=== PATIENT | female | born 1945 | race Caucasian/White ===

== ENCOUNTER 2017-11-23 01:14 | Outpatient (CLI) | payer MEDICARE, OTHER, SELFPAY ==
[2017-11-23 08:37] LABS: ALT 34 U/L (12-78); AST 25 U/L (15-37); Albumin 3.7 g/dL (3.4-5.0); Alkaline Phosphatase 81 U/L (46-116); Anion Gap 6.9 mmol/L (3-11); BUN 12 mg/dL (7-18); Bilirubin, Total 0.5 mg/dL (0.2-1.0); CO2 30.1 mmol/L (21.0-32.0); CREATININE 0.72 mg/dL (0.55-1.02); Chloride 105 mmol/L (98-107); Cholesterol 152 mg/dL (50-200); Glucose 85 mg/dL (70-100); HDL Cholesterol 52 mg/dL (40-60); LDL CHOLESTEROL 83 mg/dL (<100); Potassium 4.3 mmol/L (3.5-5.1); Sodium 142 mmol/L (136-145); Total Protein 6.6 g/dL (6.4-8.2); Triglyceride 134 mg/dL (30-150)
== END 2017-11-23 01:34 ==
DX: E03.9 Hypothyroidism, unspecified (principal); E78.5 Hyperlipidemia, unspecified; I10 Essential (primary) hypertension; I25.10 Atherosclerotic heart disease of native coronary artery without angina pectoris
CPT/HCPCS: 36415; 80053; 80061; 83721

== ENCOUNTER 2018-08-30 07:15 | Emergency (ER) | payer MEDICARE, OTHER, SELFPAY ==
[2018-08-30 07:17] VITALS: BP 128/44; PULSE 69; RESP 20; TEMP 36.6; O2SAT 92
--- NOTE | 2018-08-30 07:27 | DI.RAD_ITS ---
SYMPTOM/DIAGNOSIS: COUGH PA AND LATERAL CHEST: Comparison is made with 09/09/17. The heart size is normal. 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 The lungs are hyperinflated consistent with emphysematous changes. There are patchy densities seen at the left lower lobe which may represent pneumonia. This area appeared clear on the previous exam. IMPRESSION: Findings suspicious for left lower lobe pneumonia.
--- NOTE | 2018-08-30 07:31 | ED.GENADUL_ITS ---
Discharge Plan Disposition Patient Disposition: HOME Condition: Stable Discharge Details Chief Complaint: RespSymp Clinical Impression: Productive cough, Wheezing Primary Care Provider: Kathleen Alatorre ED Provider: Maxime Mario Home Meds and New Rx's Prescriptions: New prednisone 20 mg tablet 60 mg PO DAILY 4 Days Qty: 12 RF: 0 levofloxacin 750 mg tablet 750 mg PO DAILY Qty: 6 RF: 0 Continued acetaminophen [Tylenol Extra Strength] 500 MG tablet 1 tab PO BID PRN RF: 0 aspirin [Ecotrin] 325 MG tablet,delayed release (DR/EC) 1 tab PO DAILY RF: 0 CENTRUM SILVER TABLET 1 EACH tablet 1 tab PO DAILY RF: 0 vitamin E succinate 400 UNIT tablet 1 tab PO DAILY RF: 0 simvastatin [Zocor] 40 MG tablet 40 mg PO DAILY Qty: 90 RF: 4 lisinopril 40 MG tablet 40 mg PO DAILY Qty: 90 RF: 4 levothyroxine [Synthroid] 112 MCG tablet 112 mcg PO DAILY Qty: 90 RF: 4 Metoprolol Succinate [Toprol Xl] 100 MG TAB.ER.24H 100 mg PO DAILY Qty: 90 RF: 4 amlodipine 10 mg tablet 10 mg PO DAILY Qty: 90 RF: 3 triamcinolone acetonide [Nasacort] 10.8 ML aerosol,spray 2 spray NS BID RF: 0 Discharge Instructions Additional Instructions: You are being treated for a lung infection with antibiotics You should follow up with your primary care provider within a week. You should discuss having testing for COPD You should take your next dose of the levofloxacin and prednisone tomorrow Use the inhaler 2 puffs every 2 hours as needed for shortness of breath If you feel you are becoming more ill, have worsening shortness of breath return to the emergency department Medical Decision Making 73 yo female with hx of htn, hld, chronic smoker without dianosis of copd per pt, who comes in with 2 weeks of worsening productive cough. Denies recent travel, chest pain/pressure or fevers. She is speaking in full sentences on exam with intermittent cough. She has wheezing at the bases bilaterally otherwise no respiratory distress and speaking in full sentences. I suspect she has a component of copd given her lung exam findings and chronic smoking hx, will tx with neb and steroids and also obtain chest xray. She has no fever and appears systemically well so doubt sepsis or pna and will hold on lab work at this time. No chest pain or pressure and primary complaint is cough so doubt entities such as pe or acs and symptoms seem more infectious pt remains stable and does feel better after a neb. Xray negative on my read and vrad read. will tx as possibl copd exacerbation given emphysemetaous changes on xray and hx of smoking, advised f/u with pcp and return precautions given Differential Diagnosis copd, bronchitis, uri, pna Medical Records Medical records reviewed: Yes I reviewed the patient's medical records. Imaging Data Radiologic Study: Attestation: I personally reviewed and interpreted this imaging study as follows: Imaging: X-Ray Radiologist's impression: IMPRESSION: Emphysematous changes. No evidence of pneumonia, pulmonary vascular congestion, or pulmonary edema. HPI General Mode of arrival: ambulatory . Date/Time Provider Initiated Documentation: 08/30/18 07:16 . Limitations to Documentation: no limitations . Information obtained by: patient . History of Present Illness 73 year old F presents to the emergency department with the chief complaint of cough, described as moderate, Patient started experiencing this week(s) (2) and it has been constant. No relieving factors improve symptom(s), No exacerbating factors reported . Patient notes denies fever/chills. Patient did receive the following treatments prior to arrival, none Related Data Home Medications Medication Instructions Recorded Confirmed Centrum Silver Tablet 1 tab PO DAILY 07/05/12 08/30/18 acetaminophen [Tylenol Extra 1 tab PO BID PRN 07/05/12 08/30/18 Strength] aspirin [Ecotrin] 1 tab PO DAILY tab 07/05/12 08/30/18 vitamin E succinate 1 tab PO DAILY 07/05/12 08/30/18 levothyroxine [Synthroid] 112 mcg PO DAILY #90 tab-cap 08/18/17 08/30/18 lisinopril 40 mg PO DAILY #90 tab-cap 08/18/17 08/30/18 simvastatin [Zocor] 40 mg PO DAILY #90 tab-cap 08/18/17 08/30/18 triamcinolone acetonide [Nasacort] 2 spray NS BID 09/10/17 08/30/18 amlodipine 10 mg PO DAILY #90 tab-cap 04/30/18 08/30/18 levofloxacin 750 mg PO DAILY #6 tab 08/30/18 prednisone 60 mg PO DAILY 4 Days #12 tab 08/30/18 Previous Rx's Medication Instructions Recorded levothyroxine [Synthroid] 112 mcg PO DAILY #90 tab-cap 08/18/17 lisinopril 40 mg PO DAILY #90 tab-cap 08/18/17 simvastatin [Zocor] 40 mg PO DAILY #90 tab-cap 08/18/17 amlodipine 10 mg PO DAILY #90 tab-cap 04/30/18 levofloxacin 750 mg PO DAILY #6 tab 08/30/18 prednisone 60 mg PO DAILY 4 Days #12 tab 08/30/18 Allergies Allergy/AdvReac Type Severity Reaction Status Date / Time Penicillins Allergy Mild SWELLING Unverified 08/30/18 07:26 tetanus and diphtheria Allergy Mild LOCAL Unverified 08/30/18 07:26 toxoids REACTION; [Tetanus\T\Diphtheria Toxoid] REDNESS atorvastatin Allergy Unknown SKIN RASH Unverified 08/30/18 07:26 gemfibrozil Allergy Unknown SKIN RASH Unverified 08/30/18 07:26 naproxen AdvReac Intermediate GI UPSET Unverified 08/30/18 07:26 hydrochlorothiazide AdvReac Mild HYPONATREMI Unverified 08/30/18 07:26 A niacin AdvReac Unknown Unverified 08/30/18 07:26 General Stated Complaint: RespSymp CARLOS: 3 Review of Systems Review of Systems All systems reviewed & are unremarkable except as noted in HPI and below Constitutional Denies chills and Denies fever(s) Cardiovascular Denies chest pain Gastrointestinal Denies abdominal pain, Denies nausea and Denies vomiting PFSH Social History Smoking/Tobacco Use Status: Current every day Tobacco Type: cigarettes Alcohol Intake: never Drug use: Never Substance use type: does not use Household members: caregiver Number of Children: 3 What type of physical activity do you participate in: none Seatbelt use: always Do you feel safe at home: Yes Do you feel safe in your relationship?: Yes Exam Const General: no acute distress Orientation: alert HENMT Head: normal to inspection Ears: external ears normal General nose exam: external nose normal Mouth: moist mucous membranes Eyes General: appearance normal, both eyes and all related structures Neck Neck: normal visual inspection Resp Effort & Inspection: normal respiratory effort and able to speak in complete sentences Cardio Rate: regular rate Skin General skin exam: no rashes or lesions noted Neuro General: alert and oriented x3 Extrem General: normal to inspection Psych Mental Status: mental status grossly normal Course Vital Signs Temperature 36.6 C 08/30/18 07:17 Pulse 69 08/30/18 07:17 Respiratory Rate 20 08/30/18 07:17 Blood Pressure 128/44 L 08/30/18 07:17 Pulse Oximetry 92 L 08/30/18 07:17 Temperature 36.6 C 08/30/18 07:17 Temperature Source Temporal Artery Scan 08/30/18 07:17 Pulse 69 08/30/18 07:17 Respiratory Rate 20 08/30/18 07:17 Respiratory Effort Incrsd Work of Breathing 08/30/18 07:25 Respiratory Depth Normal 08/30/18 07:25 Blood Pressure 128/44 L 08/30/18 07:17 Blood Pressure Position Sitting 08/30/18 07:17 Pulse Oximetry 92 L 08/30/18 07:17 Oxygen Delivery Method Room Air 08/30/18 07:17 Oxygen Flow Rate 0 08/30/18 07:17 Pain Level 0 08/30/18 07:17
[2018-08-30 07:34] VITALS: PULSE 69; RESP 1; RESP 20; RESP 8; O2SAT 92
[2018-08-30] MEDS: Albuterol/Ipratropium 3 ML UPD VIAL (07:34)
[2018-08-30] MEDS: predniSONE 20 MG TAB 60 MG PO (07:35)
--- NOTE | 2018-08-30 07:57 | DI.VRAD_ITS ---
EXAM: XR Chest, 2 Views EXAM DATE/TIME: 08/30/2018 7:47 AM CLINICAL HISTORY: 73 years old, female; Cough x 3 weeks. TECHNIQUE: Imaging protocol: XR of the chest, 2 views. COMPARISON: CR CHEST 2 VIEWS PA,LAT 09/09/2017 2:49 PM FINDINGS: Lungs: Emphysematous changes. No evidence of pneumonia, pulmonary vascular congestion, or pulmonary edema. Pleural space: No pneumothorax. No sizable pleural effusion. Heart/Mediastinum: Aortic valve replacement. No cardiomegaly. Upper abdomen: Cholecystectomy clips. Bones/joints: Sternotomy. IMPRESSION: Emphysematous changes. No evidence of pneumonia, pulmonary vascular congestion, or pulmonary edema. Dictated and Authenticated by: Jesse Paez MD. Ordering:JEFE Swartz MD
[2018-08-30] MEDS: levoFLOXacin 500 MG, levoFLOXacin 250 MG 750 MG PO (07:58)
[2018-08-30 08:22] VITALS: BP 123/65; PULSE 72; RESP 18; TEMP 36.7; O2SAT 93
--- NOTE | 2018-08-30 08:24 | NUR.NOTE ---
Nursing Note: Albuterol inhale provided with demonstration and teach back.
== END 2018-08-30 08:25 | disposition home or self-care (01) ==
PROVIDERS: Emergency Provider Emergency Medicine
DX: R05 Cough (principal); R06.2 Wheezing; F17.210 Nicotine dependence, cigarettes, uncomplicated; I10 Essential (primary) hypertension
CPT/HCPCS: 94640; 99283; 71046; J7512; J7620

== ENCOUNTER 2018-11-02 02:07 | Outpatient (CLI) | payer MEDICARE, OTHER, SELFPAY ==
[2018-11-02 08:47] LABS: ALT 30 U/L (12-78); AST 22 U/L (15-37); Albumin 3.8 g/dL (3.4-5.0); Alkaline Phosphatase 86 U/L (46-116); BUN 12 mg/dL (7-18); Bilirubin, Total 0.6 mg/dL (0.2-1.0); Calcium 9.1 mg/dL (8.5-10.1); Calculated LDL 93 mg/dL; Chloride 103 mmol/L (98-107); Cholesterol 175 mg/dL (50-200); Glucose 88 mg/dL (70-100); HDL Cholesterol 48 mg/dL (40-60); Potassium 4.1 mmol/L (3.5-5.1); Sodium 140 mmol/L (136-145); TSH (W/Ref FT4) 0.79 uIU/mL (0.36-3.74); Total Protein 6.8 g/dL (6.4-8.2); Triglyceride 173 mg/dL (30-150)
== END 2018-11-02 02:27 ==
DX: E03.9 Hypothyroidism, unspecified (principal); I10 Essential (primary) hypertension; E78.5 Hyperlipidemia, unspecified; G47.00 Insomnia, unspecified
CPT/HCPCS: 36415; 80053; 80061; 83721; 84443

== ENCOUNTER 2018-12-08 14:29 | Outpatient (REF) | payer MEDICARE, OTHER, SELFPAY ==
[2018-12-09 11:52] LABS: HSV 1 DNA Result Negative; HSV 2 DNA Result POSITIVE
== END 2018-12-08 14:49 ==
LOC: LBN 14:29
PROVIDERS: Visit Provider Obstetrics & Gynecology Gynecology
DX: N90.89 Other specified noninflammatory disorders of vulva and perineum (principal)
CPT/HCPCS: 87529

== ENCOUNTER 2019-04-16 03:08 | Emergency (ER) | payer MEDICARE, OTHER, SELFPAY ==
[2019-04-16 03:11] VITALS: BP 197/65; PULSE 76; RESP 16; TEMP 36.3; O2SAT 98
--- NOTE | 2019-04-16 03:33 | ED.GENADUL_ITS ---
Discharge Plan Disposition Patient Disposition: HOME Condition: Good Discharge Details Chief Complaint: EyeProblem Clinical Impression: Abrasion, corneal Primary Care Provider: Kathleen Alatorre ED Provider: Chris Culver Home Meds and New Rx's Prescriptions: Continued nicotine 21-14-7 mg/24 hr patch, TD daily, sequential 1 patch TD Q24H Qty: 56 RF: 0 albuterol sulfate 90 mcg/actuation HFA aerosol inhaler 2 puff IH Q6H PRNRF: 0 valacyclovir [Valtrex] 1 gram tablet 1,000 mg PO BID Qty: 20 RF: 1 acetaminophen [Tylenol Extra Strength] 500 MG tablet 1 tab PO BID PRN RF: 0 aspirin [Ecotrin] 325 MG tablet,delayed release (DR/EC) 1 tab PO DAILY RF: 0 CENTRUM SILVER TABLET 1 EACH tablet 1 tab PO DAILY RF: 0 vitamin E succinate 400 UNIT tablet 1 tab PO DAILY RF: 0 levothyroxine [Synthroid] 112 mcg tablet 112 mcg PO DAILY Qty: 90 RF: 4 simvastatin [Zocor] 40 mg tablet 40 mg PO DAILY Qty: 90 RF: 4 lisinopril 40 mg tablet 40 mg PO DAILY Qty: 90 RF: 4 amlodipine 10 mg tablet 10 mg PO DAILY Qty: 90 RF: 3 metoprolol succinate 100 mg tablet extended release 24 hr 100 mg PO DAILY Qty: 90 RF: 3 triamcinolone acetonide [Nasacort] 10.8 ML aerosol,spray 2 spray NS BID RF: 0 Discharge Instructions Instructions: Corneal Abrasion (ED) Additional Instructions: You have a small corneal abrasion on your eye. Please apply a small thin ribbon of the erythromycin ointment to your right eye every 8 hours. Please follow-up closely with your energy manager or tool maintenance technician. If you notice any worsening of your symptoms, or any new symptoms such as vision changes, vomiting, diarrhea, fever, chills, shortness of breath, chest pain, numbness, weakness, or fainting , please return immediately to the emergency department for reevaluation. Please follow up with your primary care provider as soon as possible for reassessment and reevaluation. As always, it was a pleasure partici pating in your medical care today. Referrals: Kathleen Alatorre NP [Primary Care Provider] - Medical Decision Making This is a 74-year-old female who presents today for evaluation of right eye pain. She had cataract surgery in the right eye 2 years ago. Her pain tonight started sharply at 1 AM, she is a poor and difficult historian but describes it as a spiderweb pushed into her eye. Concerning red flags do not appear to be present at this time. No change in her vision or the pain with light or dark rooms. No dark curtain over her vision or lightening. No severe pressure-like sensation. No recent trauma. Physical exam demonstrates an in place disc, normal retinal exam, no cell and flare. Normal eye pressures. Visual acuity is unchanged. Fluorescein stain reveals evidence of an abrasion in the 6 o'clock position just below the pupil. Eversion of both lids demonstrates no foreign bodies that I can appreciate. Pain is completely relieved with tetracaine. Signs and symptoms clinically consistent with corneal abrasion, most likely occurring during sleep from her nail or other object. Will give erythromycin ointment for topical application, recommend close follow- up with her energy manager/tool maintenance technician. I have extensively reviewed the treatment plan and discharge instructions with the patient and their family. I have addressed all patient concerns at this time. The patient and family was made aware of what symptoms to monitor for that would warrant a return to the emergency department. Discussed the plan with the patient and family, they demonstrate verbal understanding and agreement with our assessment and plan at this time. HPI General Date/Time Provider Initiated Documentation: 04/16/19 03:13 . HPI Narrative: This is a 74-year-old female who presents today for evaluation of right eye pain. 2018 was 2 years ago in 2018 the patient had cataract surgery in her right eye. She has had no complications since then. No history of glaucoma. Patient states that tonight at 1 AM she had a sudden pain in her right eye which she describes as someone wadded up someone wadded up a cobweb and stuck it in my eye. She is unable to further describe the sensation in any other way. She denies any ice pick like sensation. She denies any recent welding, or activity that would have caused a foreign body in her eye. Light and dark rooms did not worsen her symptoms. She denies any dark curtain or lightening flashes. She denies any nausea or vomiting. No other complaints at this time. Related Data Home Medications Medication Instructions Recorded Confirmed Centrum Silver Tablet 1 tab PO DAILY 07/05/12 03/29/19 acetaminophen [Tylenol Extra 1 tab PO BID PRN 07/05/12 03/29/19 Strength] aspirin [Ecotrin] 1 tab PO DAILY tab 07/05/12 03/29/19 vitamin E succinate 1 tab PO DAILY 07/05/12 03/29/19 triamcinolone acetonide [Nasacort] 2 spray NS BID 09/10/17 03/29/19 albuterol sulfate 90 mcg/actuation 2 puff IH Q6H PRN 09/06/18 03/29/19 aerosol inhaler amlodipine 10 mg tablet 10 mg PO DAILY #90 tab-cap 11/18/18 03/29/19 levothyroxine 112 mcg tablet 112 mcg PO DAILY #90 tab-cap 11/18/18 03/29/19 lisinopril 40 mg tablet 40 mg PO DAILY #90 tab-cap 11/18/18 03/29/19 simvastatin 40 mg tablet 40 mg PO DAILY #90 tab-cap 11/18/18 03/29/19 metoprolol succinate 100 mg 100 mg PO DAILY #90 tab 11/19/18 03/29/19 tablet,extended release 24 hr nicotine 1 patch TD Q24H #56 patch 11/29/18 03/29/19 21mg/24hr-14mg/24hr-7mg/24hr daily transderm patch,sequential valacyclovir 1 gram tablet 1,000 mg PO BID #20 tab 12/10/18 03/29/19 Previous Rx's Medication Instructions Recorded amlodipine 10 mg tablet 10 mg PO DAILY #90 tab-cap 11/18/18 levothyroxine 112 mcg tablet 112 mcg PO DAILY #90 tab-cap 11/18/18 lisinopril 40 mg tablet 40 mg PO DAILY #90 tab-cap 11/18/18 simvastatin 40 mg tablet 40 mg PO DAILY #90 tab-cap 11/18/18 metoprolol succinate 100 mg 100 mg PO DAILY #90 tab 11/19/18 tablet,extended release 24 hr nicotine 1 patch TD Q24H #56 patch 11/29/18 21mg/24hr-14mg/24hr-7mg/24hr daily transderm patch,sequential valacyclovir 1 gram tablet 1,000 mg PO BID #20 tab 12/10/18 Allergies Allergy/AdvReac Type Severity Reaction Status Date / Time Penicillins Allergy Mild SWELLING Verified 03/29/19 09:06 tetanus and diphtheria Allergy Mild LOCAL Verified 03/29/19 09:06 toxoids REACTION; [Tetanus\T\Diphtheria Toxoid] REDNESS atorvastatin Allergy Unknown SKIN RASH Verified 03/29/19 09:06 gemfibrozil Allergy Unknown SKIN RASH Verified 03/29/19 09:06 naproxen AdvReac Intermediate GI UPSET Verified 03/29/19 09:06 hydrochlorothiazide AdvReac Mild HYPONATREMI Verified 03/29/19 09:06 A niacin AdvReac Unknown Verified 03/29/19 09:06 General Stated Complaint: EyeProblem CARLOS: 4 Review of Systems All systems reviewed & are unremarkable except as noted in HPI and below PFSH Family History (Updated 11/30/18 @ 11:19 by [place]) Father , age 56 Heart disease Abdominal aortic aneurysm Maternal Grandfather Heart disease Paternal Grandfather No problems noted. Maternal Grandmother Diabetes Heart disease Paternal Grandmother Diabetes Stroke SIBLINGS HISTORY Essential hypertension Heart disease Abdominal aortic aneurysm Bladder cancer 2 UNCLES Heart disease Sister , age 21 Abdominal aortic aneurysm Sister Abdominal aortic aneurysm Sister No problems noted. Brother , age 56 Alcohol abuse Brother No problems noted. Brother No problems noted. Brother No problems noted. Brother No problems noted. Son No problems noted. Son Heart disease Daughter No problems noted. Social History (Updated 11/30/18 @ 11:16 by [place]) Smoking/Tobacco Use Status: Current every day Tobacco Type: cigarettes Quit status: not considering quitting Alcohol Intake: never Drug use: Never Substance use type: does not use Caregiver/Support person: No Number of Children: 3 Do you need help understanding health information?: Rarely Pets and animals: No Sexually active: No Do you think of yourself as: straight/heterosexual Current gender identity: female What is your relationship status?: How often do you talk on the phone with friends or family?: three or more times per week How often do you get together with friends or relatives?: three or more times per week How often do you attend episcopalian or evangelical services?: decline to answer Do you belong to any clubs or organized social groups?: no Panel score (0-1 are the most socially isolated patients): 1 What type of physical activity do you participate in: none Adrianne/Voodoo: none Special adrianne needs: No Seatbelt use: always Drive intox or ride w/intox fire truck driver: No Do you feel safe at home: Yes Do you feel safe in your relationship?: Yes Exam Narrative Exam Narrative: 1.Const: Well-nourished, Well-developed, appearing stated age 2.Eyes: PERRL, no conjunctival injection, and symmetrical lids. Left eye: EOMI, PERRL, Peripheral vision intact. No nystagmus. No clinical signs of septal/orbital cellulitis, no redness around the eye, no proptosis. No hyphema, no signs of trauma around the eye, no periorbital emphysema. No slugg ishness of the pupil. No ophthalmoplegia. No afferent pupillary defect. Fluorescein exam is positive for corneal abrasion in the 6 o'clock position just below the pupil, negative Bart sign. No evidence of cell and flare. Visual acuity is normal. No asymmetric visual changes. Collin-Pen demonstrates normal pressure in the right eye. 3.ENT: Atraumatic external nose and ears. Moist MM. Neck: Symmetric, trachea midline, No thyromegaly. 4.CVS: +S1/S2, No murmurs or gallops. Peripheral pulses 2+ and equal in all extremities. Brisk capillary refill in all extremities. 5.RESP: Unlabored respiratory effort. Clear to auscultation bilaterally. No wheezes rales or rhonchi 6.GI: Soft, Nontender/Nondistended, No hepatosplenomegaly. No guarding or rebound. 7.MSK: Normocephalic/Atraumatic, Extremities w/o deformity or ttp No cyanosis or clubbing, Normal movement of all extremities 8.Skin: Warm, Dry. No rashes or lesions. 9.Neuro: parquet floor layer II-XII grossly intact. Sensation grossly intact, no focal neurologic deficits. 10.Psych: (AAO) x3. Appropriate mood and affect Course Vital Signs Vital signs: Vital Signs Temperature 36.3 C L 04/16/19 03:11 Pulse 76 04/16/19 03:11 Respiratory Rate 16 04/16/19 03:11 Blood Pressure 197/65 H 04/16/19 03:11 Pulse Oximetry 98 04/16/19 03:11 Temperature 36.3 C L 04/16/19 03:11 Temperature Source Temporal Artery Scan 04/16/19 03:11 Pulse 76 04/16/19 03:11 Respiratory Rate 16 04/16/19 03:11 Respiratory Effort 04/16/19 03:15 Blood Pressure 197/65 H 04/16/19 03:11 Pulse Oximetry 98 04/16/19 03:11 Oxygen Delivery Method Room Air 04/16/19 03:11 Oxygen Flow Rate 0 04/16/19 03:11
[2019-04-16] MEDS: Fluorescein STRIPS 100/BOX 1 MG (03:35)
[2019-04-16] MEDS: Tetracaine 0.5% 4 ML BTL (03:36)
[2019-04-16 03:37] VITALS: BP 156/62
[2019-04-16] MEDS: Erythromycin Ophth Oint 3.5 GM TUBE OD (03:38)
== END 2019-04-16 03:45 | disposition home or self-care (01) ==
LOC: ER 03:42
PROVIDERS: Emergency Provider Student in an Organized Health Care Education/Training Program
DX: H53.8 Other visual disturbances (principal); S05.01XA Injury of conjunctiva and corneal abrasion without foreign body, right eye, initial encounter; X58.XXXA Exposure to other specified factors, initial encounter
CPT/HCPCS: 99283

== ENCOUNTER 2019-12-02 02:27 | Outpatient (CLI) | payer MEDICARE, OTHER, SELFPAY ==
[2019-12-02 09:15] LABS: ALT 34 U/L (14-59); AST 25 U/L (15-37); Alkaline Phosphatase 84 U/L (46-116); BUN 10 mg/dL (7-18); Bilirubin, Total 0.5 mg/dL (0.2-1.0); CREATININE 0.71 mg/dL (0.55-1.02); Calcium 9.4 mg/dL (8.5-10.1); Chloride 102 mmol/L (98-107); Glucose 96 mg/dL (74-106); Potassium 3.7 mmol/L (3.5-5.1); Sodium 138 mmol/L (136-145); TSH (W/Ref FT4) 0.39 uIU/mL (0.36-3.74); Total Protein 6.9 g/dL (6.4-8.2)
== END 2019-12-02 02:47 ==
DX: E03.9 Hypothyroidism, unspecified (principal); E78.5 Hyperlipidemia, unspecified; F17.200 Nicotine dependence, unspecified, uncomplicated; J44.9 Chronic obstructive pulmonary disease, unspecified
CPT/HCPCS: 36415; 80053; 84443

== ENCOUNTER 2019-12-09 04:01 | Outpatient (CLI) | payer MEDICARE, OTHER, SELFPAY ==
--- NOTE | 2019-12-09 06:45 | DI.US_ITS ---
EXAM: US LOWER EXTREMITY VENOUS RT CLINICAL HISTORY: ? DVT post fall, PAIN LT LEG,M79.605, SWELLING,R22.42 TECHNIQUE: Right lower extremity venous ultrasound performed using grayscale, color-flow, and spectr al Doppler analysis. COMPARISON: No exams were available for comparison FINDINGS: The right common femoral, femoral and popliteal veins demonstrate normal compressibility, augmentatio n, and color Doppler. The posterior tibial veins are patent. The saphenofemoral junction is unremark able. There is no evidence of a Palmer cyst. There is a 3.3 x 0.8 x 2.9 cm complex fluid collection in the soft tissues of the distal calf laterally. This corresponds to the area of swelling. This ma y reflect a hematoma. IMPRESSION: 1. No DVT. 2. 3.3 x 0.8 x 2.9 cm complex fluid collection in the soft tissues of the calf. This may reflect a h ematoma. Please correlate clinically. DATA REPOSITORY:
--- NOTE | 2019-12-09 09:19 | DI.RAD_ITS ---
EXAM: XR TIB/FIB RT CLINICAL HISTORY: leg pain, edema and contusion post fall - not imprOVING,? FX,CELLULITIS VS. TECHNIQUE: 2D digital imaging was performed. COMPARISON: No exams were available for comparison FINDINGS: BONES: No acute fracture is present. No bony destructive lesion is seen. Visualized portion of knee a nd ankle joints are unremarkable. Small plantar calcaneal spur. Enthesophyte at the Achilles insert ion site. SOFT TISSUE: Vascular calcifications. Surgical clips around the knee. IMPRESSION: No acute fracture or dislocation. DATA REPOSITORY: RADIATION DOSE DELIVERED:
== END 2019-12-09 04:21 ==
DX: M79.661 Pain in right lower leg (principal); R60.0 Localized edema
CPT/HCPCS: 73590; 93971

== ENCOUNTER 2020-11-26 04:12 | Outpatient (CLI) | payer MEDICARE, OTHER, SELFPAY ==
[2020-11-26 11:23] LABS: ALT 32 U/L (14-59); AST 26 U/L (15-37); Albumin 3.8 g/dL (3.4-5.0); Alkaline Phosphatase 98 U/L (46-116); Anion Gap 10.3 mmol/L (3-11); BUN 10 mg/dL (7-18); Bilirubin, Total 0.4 mg/dL (0.2-1.0); CO2 28.7 mmol/L (21.0-32.0); CREATININE 0.8 mg/dL (0.55-1.02); Calcium 9.4 mg/dL (8.5-10.1); Chloride 103 mmol/L (98-107); Glucose 89 mg/dL (74-106); Potassium 4.1 mmol/L (3.5-5.1); Sodium 142 mmol/L (136-145); TSH (W/Ref FT4) 0.33 uIU/mL (0.36-3.74); Total Protein 6.8 g/dL (6.4-8.2)
[2020-11-26 11:42] LABS: FREE T4 1.45 ng/dL (0.76-1.46)
== END 2020-11-26 04:13 | disposition home or self-care (01) ==
LOC: LBO 04:12
DX: E03.9 Hypothyroidism, unspecified; F17.200 Nicotine dependence, unspecified, uncomplicated; I10 Essential (primary) hypertension; I25.10 Atherosclerotic heart disease of native coronary artery without angina pectoris; J44.9 Chronic obstructive pulmonary disease, unspecified; K63.5 Polyp of colon; N81.10 Cystocele, unspecified
CPT/HCPCS: 36415; 80053; 84439; 84443

== ENCOUNTER 2021-12-10 03:07 | Outpatient (CLI) | payer MEDICARE, OTHER, SELFPAY ==
[2021-12-10 14:11] LABS: Hemoglobin A1C 5.5 % (<5.7)
[2021-12-10 15:02] LABS: ALT 36 U/L (14-59); AST 25 U/L (15-37); Albumin 3.7 g/dL (3.4-5.0); Alkaline Phosphatase 97 U/L (46-116); Anion Gap 8.8 mmol/L (3-11); BUN 13 mg/dL (7-18); Bilirubin, Total 0.4 mg/dL (0.2-1.0); CO2 28.2 mmol/L (21.0-32.0); CREATININE 0.7 mg/dL (0.55-1.02); Calcium 9.2 mg/dL (8.5-10.1); Calculated LDL 62 mg/dL (<100); Chloride 102 mmol/L (98-107); Cholesterol 150 mg/dL (<200); Estimated GFR 89.58 (mL/min/1.73m2); Glucose 94 mg/dL (74-106); HDL Cholesterol 53 mg/dL (40-60); Potassium 3.7 mmol/L (3.5-5.1); Sodium 139 mmol/L (136-145); TSH 0.24 uIU/mL (0.36-3.74); Total Protein 7.1 g/dL (6.4-8.2); Triglyceride 177 mg/dL (<150)
[2021-12-10 21:15] LABS: FREE T4 1.43 ng/dL (0.76-1.46)
== END 2021-12-10 03:08 | disposition home or self-care (01) ==
LOC: LBO 03:07
PROVIDERS: Visit Provider Nurse Practitioner Family
DX: E03.9 Hypothyroidism, unspecified (principal); R73.01 Impaired fasting glucose; I10 Essential (primary) hypertension; I25.10 Atherosclerotic heart disease of native coronary artery without angina pectoris; R45.89 Other symptoms and signs involving emotional state
CPT/HCPCS: 36415; 80053; 80061; 83036; 84439; 84443

== ENCOUNTER 2022-01-27 04:05 | Outpatient (CLI) | payer MEDICARE, OTHER, SELFPAY ==
[2022-01-27 12:32] LABS: ALT 30 U/L (14-59); AST 29 U/L (15-37); Alkaline Phosphatase 106 U/L (46-116); Anion Gap 7.9 mmol/L (3-11); BUN 12 mg/dL (7-18); Bilirubin, Total 0.5 mg/dL (0.2-1.0); CO2 30.1 mmol/L (21.0-32.0); CREATININE 0.7 mg/dL (0.55-1.02); Calcium 9.4 mg/dL (8.5-10.1); Chloride 102 mmol/L (98-107); Estimated GFR 89.02 (mL/min/1.73m2); Glucose 97 mg/dL (74-106); Potassium 3.4 mmol/L (3.5-5.1); Sodium 140 mmol/L (136-145); Total Protein 7.7 g/dL (6.4-8.2)
[2022-01-27 12:41] LABS: FREE T4 1.49 ng/dL (0.76-1.46); TSH 1.03 uIU/mL (0.36-3.74)
== END 2022-01-27 04:06 | disposition home or self-care (01) ==
LOC: LOS 04:06
PROVIDERS: PCP Nurse Practitioner Family; Visit Provider Nurse Practitioner Family
DX: E03.9 Hypothyroidism, unspecified (principal); I10 Essential (primary) hypertension
CPT/HCPCS: 36415; 80053; 84439; 84443

== ENCOUNTER 2022-03-25 03:18 | Outpatient (CLI) | payer MEDICARE, OTHER, SELFPAY ==
[2022-03-25 13:08] LABS: Anion Gap 7.1 mmol/L (3-11); BUN 19 mg/dL (7-18); CO2 28.9 mmol/L (21.0-32.0); CREATININE 0.9 mg/dL (0.55-1.02); Calcium 9.3 mg/dL (8.5-10.1); Chloride 100 mmol/L (98-107); Estimated GFR 65.84 (mL/min/1.73m2); Glucose 103 mg/dL (74-106); Potassium 3.6 mmol/L (3.5-5.1); Sodium 136 mmol/L (136-145); Uric Acid 4.3 mg/dL (2.6-6.0)
== END 2022-03-25 03:19 | disposition home or self-care (01) ==
LOC: LBO 03:18
PROVIDERS: PCP Nurse Practitioner Family; Visit Provider Nurse Practitioner Family
DX: I10 Essential (primary) hypertension (principal); Z51.81 Encounter for therapeutic drug level monitoring
CPT/HCPCS: 36415; 80048; 84550

== ENCOUNTER 2022-05-14 01:38 | Outpatient (CLI) | payer MEDICARE, SELFPAY ==
--- NOTE | 2022-05-14 06:45 | DI.CT_ITS ---
Exam(s) CT ABDOMEN PELVIS W EXAM: CT ABDOMEN PELVIS W CLINICAL HISTORY: Longstanding left lower quadrant pain,r10.9 TECHNIQUE: Imaging Protocol: Axial computed tomography images with coronal and sagittal reformatted images were created and reviewed CONTRAST MATERIAL: Intravenous: Omnipaque 350 Contrast volume:100 mL Oral: Yes COMPARISON: CT ABD PELVIS WITH CONTRAST from 10/22/2011 FINDINGS: ABDOMEN: Lung Bases: Coronary artery calcifications and/or stents. Sternal wires are in place. Liver: Normal density. There are tiny hypodensities scattered in the liver which are too small for fu rther characterization but likely reflect small cysts. No suspicious masses are seen. Portal, Superior Mesenteric, and Splenic Veins: Unremarkable. Gallbladder and Biliary Tract: Status post cholecystectomy. The common duct measures 1.1 cm. This i s unchanged compared to the prior examination. Pancreas: Normal density, no abnormal calcifications or inflammatory process. Spleen: Normal. Adrenals: No masses seen. Kidneys: Normal size, contour and axis. No radiodense stones or obstructive uropathy. There are bilat eral simple renal cysts. The largest on the right measures 2.1 cm. The largest on the left measures 3 .4 cm. No follow-up is recommended. Abdominal Aorta: There is a large infrarenal tortuous abdominal aortic aneurysm measuring 6.5 x 6.6 c m. The the aneurysm lies predominantly to the left of midline. This has shown significant increase in size compared to prior examinations. There is no evidence of dissection. The aneurysm begins below t he renal arteries and extends to the bifurcation. The iliac arteries are normal caliber. Atherosclero sis is seen throughout. Bowel: There is diverticulosis in the colon, but no evidence of acute diverticulitis. There is no issac dence of bowel obstruction or bowel wall thickening. Appendix is unremarkable. Peritoneal Cavity: No ascites, collection or mesenteric inflammatory response. No free air. Lymph Nodes: Within normal limits. Bones: Within normal limits for the patient's age. The bones are osteopenic. Soft Tissues: There is a 1.7 x 1.6 cm soft tissue nodule in the left anterior chest wall incompletely imaged on this examination. There is again seen a fluid attenuation lesion in the midline of the up per abdomen just beneath the left lobe of the liver. It is unchanged in appearance compared to 2012. PELVIS: Bladder: Symmetric distention, no gross wall thickening. Note is made of a cystocele protruding throu gh the vagina. Reproductive Organs: Status post hysterectomy. Lymph Nodes: Within normal limits. Bones: Within normal limits for the patient's age. IMPRESSION: 1. 6.5 x 6.6 cm tortuous abdominal aortic aneurysm. This is shown significant increase in size compar ed to the examination from 10/22/2011. No evidence of dissection. Dr. Tariq was notified of the aneu rysm at 10:50 a.m. on 05/14/2022. 2. Urinary cystocele which is seen protruding through the vagina. 3. 1.7 x 1.6 cm soft tissue nodule in the soft tissues of the left anterior chest wall. It is incompl etely imaged on this examination. Please correlate with physical exam. A CT scan of the chest may be considered for further evaluation. This may lie within the inferior breast and mammographic correlati on should be considered. Unexpected findings RADIATION DOSE DELIVERED: 524.85mGy.cm Total DLP DATA REPOSITORY: All CT scans at this facility are submitted to the National Radiology Data Registry (NRDR) Dose Index Registry (DIR) with the [employer] (ACR). RADIATION OPTIMIZATION: All CT scans at this facility use at least one of these dose optimization te chniques: automated exposure control; mA and/or kV adjustment per patient size (includes targeted exa ms where dose is matched to clinical indication); or iterative reconstruction.
[2022-05-14] MEDS: Barium Sulfate 2% W/V-Berry Smoothie 450 ML BTL PO ×2 (07:58)
[2022-05-14 08:34] LABS: CREATININE 0.8 mg/dL (0.55-1.02); Estimated GFR 75.84 (mL/min/1.73m2)
[2022-05-14] MEDS: Normal Saline - Diluent 50 ML VIAL IJ (10:01)
[2022-05-14] MEDS: Omnipaque 350 MG/ML 500 ML BTL-Imaging package 100 ML IJ (10:01)
[2022-05-14] MEDS: Normal Saline Flush 10 ML SYR IVP (10:02)
== END 2022-05-14 01:58 ==
PROVIDERS: PCP Nurse Practitioner Family; Visit Provider Obstetrics & Gynecology Gynecology
DX: R10.32 Left lower quadrant pain (principal); Z01.812 Encounter for preprocedural laboratory examination; K76.89 Other specified diseases of liver; Z90.49 Acquired absence of other specified parts of digestive tract; N28.1 Cyst of kidney, acquired; Z90.710 Acquired absence of both cervix and uterus; I71.40 Abdominal aortic aneurysm, without rupture, unspecified; N81.12 Cystocele, lateral
CPT/HCPCS: 74177; 82565

== ENCOUNTER 2022-06-26 02:03 | Outpatient (CLI) | payer MEDICARE, SELFPAY ==
[2022-06-26 15:45] LABS: Anion Gap 7.6 mmol/L (3-11); CO2 28.4 mmol/L (21.0-32.0); CREATININE 0.8 mg/dL (0.55-1.02); Calcium 9.3 mg/dL (8.5-10.1); Chloride 103 mmol/L (98-107); Estimated GFR 75.84 (mL/min/1.73m2); Glucose 79 mg/dL (74-106); Potassium 3.8 mmol/L (3.5-5.1); Sodium 139 mmol/L (136-145)
[2022-06-26 16:06] LABS: BUN 17 mg/dL (7-18)
== END 2022-06-26 02:04 | disposition home or self-care (01) ==
PROVIDERS: PCP Nurse Practitioner Family; Visit Provider Nurse Practitioner Family
DX: I10 Essential (primary) hypertension (principal)
CPT/HCPCS: 36415; 80048

== ENCOUNTER 2022-07-11 01:18 | Outpatient (CLI) | payer MEDICARE, SELFPAY ==
[2022-07-11 09:37] LABS: HCT 39.4 % (36.0-46.0); MCH 30.7 pg (27.0-33.0); MCV 93 fL (80-95); Platelet Count 226 10^3/uL (130-400); RBC 4.24 10^6/uL (3.93-5.22); RDW 15.5 % (11.7-14.6); RDW-SD 53.1 fL; WBC 7.41 10^3/uL (4.4-10.8)
[2022-07-11 10:12] LABS: ALT 39 U/L (14-59); AST 31 U/L (15-37); Albumin 3.7 g/dL (3.4-5.0); Alkaline Phosphatase 130 U/L (46-116); BUN 13 mg/dL (7-18); Bilirubin, Total 0.5 mg/dL (0.2-1.0); CREATININE 0.9 mg/dL (0.55-1.02); Calcium 9.7 mg/dL (8.5-10.1); Chloride 103 mmol/L (98-107); Estimated GFR 65.84 (mL/min/1.73m2); Glucose 96 mg/dL (74-106); Potassium 3.5 mmol/L (3.5-5.1); Sodium 139 mmol/L (136-145); Total Protein 7.3 g/dL (6.4-8.2)
== END 2022-07-11 01:19 | disposition home or self-care (01) ==
PROVIDERS: PCP Nurse Practitioner Family; Visit Provider Nurse Practitioner Family
DX: Z68.1 Body mass index [BMI] 19.9 or less, adult (principal); R10.9 Unspecified abdominal pain; R35.0 Frequency of micturition
CPT/HCPCS: 36415; 80053; 85027; 87077; 87086; 87186

== ENCOUNTER 2023-01-19 10:20 | Inpatient (IN) | payer MEDICARE, SELFPAY ==
[2023-01-19] VITALS (44 sets, daily range): BP systolic 96–154; BP diastolic 25–66; PULSE 47–85; RESP 14–29; TEMP 36.4–37.7; O2SAT 91–99
--- NOTE | 2023-01-19 | DI.CT_ITS ---
Exam(s) CT ABDOMEN PELVIS CTA EXAM: CT ABDOMEN PELVIS CTA CLINICAL HISTORY: aaa, abd pain. TECHNIQUE: Imaging Protocol: Axial CT angiography was performed with multi-slice acquisition and m ulti-planar and/or 3D reconstructions. CONTRAST MATERIAL: Intravenous: Omnipaque 350 Contrast volume:99mL Oral: No COMPARISON: CT CT ABDOMEN PELVIS W from 05/14/2022 FINDINGS: ABDOMEN AND PELVIS: Abdomen: Celiac axis/mesenteric arteries: Atherosclerosis at the origins. There is extensive atherosclerosis of the superior mesenteric artery with approximately 50 percent stenosis. Renal Arteries: No evidence of occlusion or significant stenosis. There is atherosclerosis at the stan gins of both renal arteries. Aorta: There is a large tortuous abdominal aortic aneurysm measuring 6.9 x 7.0 cm maximally. There is atherosclerosis. No evidence of dissection. Pelvis: Iliac Arteries: No evidence of occlusion or significant stenosis. Common Femoral Arteries: No evidence of occlusion or significant stenosis. ABDOMEN: Lung bases: Unremarkable. Liver: Normal density. No measurable mass. Portal, Superior Mesenteric, and Splenic Veins: Unremarkable. Gallbladder and Biliary Tract: Status post cholecystectomy. There is unchanged dilatation of the com mon bile duct measuring 1 cm. Pancreas: Pancreatic atrophy. Spleen: Normal. Adrenals: No masses seen. Kidneys: Normal size, contour and axis. No radiodense stones or obstructive uropathy. Stable bilatera l renal cysts. No follow-up is recommended. Bowel: There is diverticulosis of the colon. Mild inflammatory changes are seen around the descendin g and proximal sigmoid colon suspicious for acute diverticulitis/colitis. There is no evidence of vern wel obstruction. No evidence of appendicitis. No findings to suggest pneumatosis. Peritoneal Cavity: No ascites, collection or mesenteric inflammatory response. No free air. Lymph Nodes: Within normal limits. Bones: Within normal limits for the patient's age. The bones are osteopenic. Soft Tissues: There is a stable fluid attenuation lesion in the midline of the upper abdomen just diane eath the left lobe of the liver. It is stable. PELVIS: Bladder: Symmetric distention, no gross wall thickening. Reproductive Organs: Unremarkable as visualized. Lymph Nodes: Within normal limits. Bones: Within normal limits. IMPRESSION: 1. Inflammation around the distal descending colon and proximal sigmoid colon which may represent col itis versus diverticulitis. No abscess or free air. 2. 6.9 x 7.0 cm infrarenal abdominal aortic aneurysm without evidence of dissection. 3. 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 4. Findings were discussed with Dr. Harris of the emergency department at 2:19 p.m. on 01/19/2023. RADIATION DOSE DELIVERED: Total DLP DATA REPOSITORY: All CT scans at this facility are submitted to the National Radiology Data Registry (NRDR) Dose Index Registry (DIR) with the [employer] (ACR). RADIATION OPTIMIZATION: All CT scans at this facility use at least one of these dose optimization te chniques: automated exposure control; mA and/or kV adjustment per patient size (includes targeted exa ms where dose is matched to clinical indication); or iterative reconstruction.
[2023-01-19 11:27] LABS: Abs Immature Grans 0.13 10^3/uL (0.0-0.06); Absolute Basophil Count 0.06 10^3/uL (0.0-0.2); Absolute Eosinophil Count 0.09 10^3/uL (0.0-0.7); Absolute Lymphocyte Count 1.86 10^3/uL (1.2-3.4); Absolute Monocyte Count 0.26 10^3/uL (0.1-0.8); Absolute Neutrophil Count 7.41 10^3/uL (1.2-6.7); Basophils % 0.6; Eosinophils % 0.9; HCT 39.8 % (36.0-46.0); HGB 13.4 g/dL (11.2-15.7); Immature Grans % 1.3; MCH 31.2 pg (27.0-33.0); MCHC 33.7 % (32.0-36.0); MCV 93 fL (80-95); MPV 10.7 fL (8.0-11.0); Monocytes % 2.7; Neutrophils % 75.5; Platelet Count 227 10^3/uL (130-400); RBC 4.29 10^6/uL (3.93-5.22); RDW 15.9 % (11.7-14.6); RDW-SD 54.4 fL; WBC 9.81 10^3/uL (4.4-10.8)
--- NOTE | 2023-01-19 11:27 | W.ED.GENAD ---
Discharge Plan Disposition Patient Disposition: Admit to [facility] Condition: Stable Discharge Details Chief Complaint: Arrhythmia Clinical Impression: Colitis Primary Care Provider: Danielito Henry ED Provider: Asif Harris Home Meds and New Rx's Prescriptions: No Action aspirin 325 mg tablet 325 mg PO DAILY Ensure Liquid 8 ml PO TID Qty: 5688 12RF simvastatin 20 mg tablet 20 mg PO DAILY Qty: 90 3RF spironolactone 25 mg tablet 25 mg PO DAILY Qty: 90 1RF acetaminophen [Tylenol Extra Strength] 500 MG tablet 1 tab PO BID PRN Patient Comments: took over a month ago CENTRUM SILVER TABLET 1 EACH tablet 1 tab PO DAILY vitamin E succinate 400 UNIT tablet 1 tab PO DAILY levothyroxine 100 mcg tablet 100 mcg PO DAILY Qty: 90 2RF amlodipine 10 mg tablet See Rx Instructions .ROUTE .COMPLEX Qty: 90 2RF Dose Instruction: TAKE ONE TABLET BY MOUTH EVERY DAY Rx Instructions: TAKE ONE TABLET BY MOUTH EVERY DAY metoprolol succinate 100 mg tablet extended release 24 hr See Rx Instructions .ROUTE .COMPLEX Qty: 90 2RF Dose Instruction: TAKE ONE TABLET BY MOUTH EVERY DAY Rx Instructions: TAKE ONE TABLET BY MOUTH EVERY DAY lisinopril 40 mg tablet See Rx Instructions .ROUTE .COMPLEX Qty: 90 2RF Dose Instruction: TAKE ONE TABLET BY MOUTH EVERY DAY Rx Instructions: TAKE ONE TABLET BY MOUTH EVERY DAY Medical Decision Making 1130?- 78-year-old female with history of multiple medical problems including AAA, here with abdominal pain and frequent loose stools since this morning. Concern for AAA with rupture versus gastroenteritis versus biliary disease or pancreatitis. Bedside ultrasound performed by me and reveals large AAA. Plan to obtain stat CTA of the abdomen and pelvis. I offered analgesic and patient declined at this time. -- CT of the abdomen pelvis was interpreted by radiology: AAA is present, not dissecting. Colitis versus diverticulitis. Plan to treat with Flagyl and Levaquin IV. I spoke with Dr. Rubio, discussed ED presentation and course, she will admit the patient. Lab Data Lab results reviewed: Yes I reviewed the patient's lab results. Labs: Laboratory Tests Range/Units 01/19/23 01/19/23 01/19/23 10:30 10:35 11:20 WBC (4.4-10.8) 10^3/uL 9.81 RBC (3.93-5.22) 10^6/uL 4.29 Hgb (11.2-15.7) g/dL 13.4 Hct (36.0-46.0) % 39.8 MCV (80-95) fL 93 MCH (27.0-33.0) pg 31.2 MCHC (32.0-36.0) % 33.7 RDW (11.7-14.6) % 15.9 H Plt Count (130-400) 10^3/uL 227 MPV (8.0-11.0) fL 10.7 Immature Gran % 1.3 Neutrophils % 75.5 Lymphocytes % 19.0 Monocytes % 2.7 Eosinophils % 0.9 Basophils % 0.6 Nucleated RBC % (0.0-0.3) % 0.0 Absolute Neutrophils (1.2-6.7) 10^3/uL 7.41 H Absolute Lymphocytes (1.2-3.4) 10^3/uL 1.86 Absolute Monocytes (0.1-0.8) 10^3/uL 0.26 Absolute Eosinophils (0.0-0.7) 10^3/uL 0.09 Absolute Basophils (0.0-0.2) 10^3/uL 0.06 VBG Lactate (0.6-1.4) mmol/L 2.3 H* Sodium (136-145) mmol/L 133 L Potassium (3.5-5.1) mmol/L 3.6 Chloride (98-107) mmol/L 97 L Carbon Dioxide (21.0-32.0) mmol/L 25.8 Anion Gap (3-11) mmol/L 10.2 BUN (7-18) mg/dL 22 H Creatinine (0.55-1.02) mg/dL 1.1 H Est GFR (CKD-EPI 2020) (mL/min/1.73m2) 51.43 Glucose (74-106) mg/dL 163 H Calcium (8.5-10.1) mg/dL 10.3 H Magnesium (1.8-2.4) mg/dL 2.5 H Total Bilirubin (0.2-1.0) mg/dL 0.7 AST (15-37) U/L 33 ALT (14-59) U/L 35 Alkaline Phosphatase (46-116) U/L 159 H Troponin I (<or=60) ng/L < 50 Total Protein (6.4-8.2) g/dL 7.7 Albumin (3.4-5.0) g/dL 4.1 Lipase (16-77) U/L 95 H COVID-19 Source SARS-CoV-2 (PCR) (Negative) Patient ABO/Rh O Positive Antibody Screen NEGATIVE Range/Units 01/19/23 14:30 WBC (4.4-10.8) 10^3/uL RBC (3.93-5.22) 10^6/uL Hgb (11.2-15.7) g/dL Hct (36.0-46.0) % MCV (80-95) fL MCH (27.0-33.0) pg MCHC (32.0-36.0) % RDW (11.7-14.6) % Plt Count (130-400) 10^3/uL MPV (8.0-11.0) fL Immature Gran % Neutrophils % Lymphocytes % Monocytes % Eosinophils % Basophils % Nucleated RBC % (0.0-0.3) % Absolute Neutrophils (1.2-6.7) 10^3/uL Absolute Lymphocytes (1.2-3.4) 10^3/uL Absolute Monocytes (0.1-0.8) 10^3/uL Absolute Eosinophils (0.0-0.7) 10^3/uL Absolute Basophils (0.0-0.2) 10^3/uL VBG Lactate (0.6-1.4) mmol/L Sodium (136-145) mmol/L Potassium (3.5-5.1) mmol/L Chloride (98-107) mmol/L Carbon Dioxide (21.0-32.0) mmol/L Anion Gap (3-11) mmol/L BUN (7-18) mg/dL Creatinine (0.55-1.02) mg/dL Est GFR (CKD-EPI 2020) (mL/min/1.73m2) Glucose (74-106) mg/dL Calcium (8.5-10.1) mg/dL Magnesium (1.8-2.4) mg/dL Total Bilirubin (0.2-1.0) mg/dL AST (15-37) U/L ALT (14-59) U/L Alkaline Phosphatase (46-116) U/L Troponin I (<or=60) ng/L Total Protein (6.4-8.2) g/dL Albumin (3.4-5.0) g/dL Lipase (16-77) U/L COVID-19 Source Nasal/Nares SARS-CoV-2 (PCR) (Negative) Negative Patient ABO/Rh Antibody Screen HPI General Mode of arrival: EMS. Date/Time Provider Initiated Documentation: 01/19/23 10:26. Limitations to Documentation: altered mental status. Information obtained by: patient. HPI Narrative: 78-year-old female with multiple medical problems including history of diverticulosis, abdominal aortic aneurysm, hypertension, hyperlipidemia, hypothyroidism, nonalcoholic fatty liver disease, presents with chief complaint of abdominal discomfort with associated frequent loose stool since this morning. History is limited secondary to poor historian and altered mental status. Related Data Home Medications Medication Instructions Recorded Confirmed Centrum Silver Tablet 1 tab PO DAILY 07/05/12 01/19/23 acetaminophen 500 mg tablet 1 tab PO BID PRN 07/05/12 01/19/23 (Tylenol Extra Strength) vitamin E succinate 268 mg (400 1 tab PO DAILY 07/05/12 01/19/23 unit) tablet aspirin 325 mg tablet 325 mg PO DAILY 12/05/21 01/19/23 food supplemt, lactose-reduced 8 ml PO TID #5,688 mL 06/06/22 01/19/23 (Ensure oral liquid) levothyroxine 100 mcg tablet 100 mcg PO DAILY #90 tab-caps 06/17/22 01/19/23 simvastatin 20 mg tablet 20 mg PO DAILY #90 tab-caps 10/07/22 01/19/23 spironolactone 25 mg tablet 25 mg PO DAILY #90 tabs 10/07/22 01/19/23 amlodipine 10 mg tablet See Rx Instructions .Route 10/17/22 01/19/23 .COMPLEX #90 tabs lisinopril 40 mg tablet See Rx Instructions .Route 10/17/22 01/19/23 .COMPLEX #90 tabs metoprolol succinate 100 mg See Rx Instructions .Route 10/17/22 01/19/23 tablet,extended release 24 hr .COMPLEX #90 tabs Previous Rx's Medication Instructions Recorded food supplemt, lactose-reduced 8 ml PO TID #5,688 mL 03/24/23 (Ensure oral liquid) levothyroxine 100 mcg tablet 100 mcg PO DAILY #90 tab-caps 06/17/22 simvastatin 20 mg tablet 20 mg PO DAILY #90 tab-caps 10/07/22 spironolactone 25 mg tablet 25 mg PO DAILY #90 tabs 10/07/22 amlodipine 10 mg tablet See Rx Instructions .Route 10/17/22 .COMPLEX #90 tabs lisinopril 40 mg tablet See Rx Instructions .Route 10/17/22 .COMPLEX #90 tabs metoprolol succinate 100 mg See Rx Instructions .Route 10/17/22 tablet,extended release 24 hr .COMPLEX #90 tabs Allergies Allergy/AdvReac Type Severity Reaction Status Date / Time Penicillins Allergy Mild SWELLING Verified 01/19/23 10:43 tetanus and diphtheria Allergy Mild LOCAL Verified 01/19/23 10:43 toxoids REACTION; [Tetanus\T\Diphtheria Toxoid] REDNESS atorvastatin Allergy Unknown SKIN RASH Verified 01/19/23 10:43 gemfibrozil Allergy Unknown SKIN RASH Verified 01/19/23 10:43 naproxen AdvReac Intermediate GI UPSET Verified 01/19/23 10:43 hydrochlorothiazide AdvReac Mild HYPONATREMI Verified 01/19/23 10:43 A niacin AdvReac Unknown Verified 01/19/23 10:43 General Stated Complaint: Nausea/Vomit/Diar CARLOS: 3 Review of Systems All systems reviewed & are unremarkable except as noted in HPI and below Constitutional Constitutional: Denies fever(s) Gastrointestinal Gastrointestinal: Reports abdominal pain (Diffuse) and Denies nausea PFSH All Active Problems (Updated 01/19/23 @ 15:24 by Asif Harris MD) Colitis (Acute) Left lower quadrant pain (Acute) Cyst of right breast (Acute) 05/2022 noted at time of abdominal CAT scan. Patient declines mammogram. 06/2022. 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 Taking daily ASA, Metopolol 100mg QD. Abdominal aortic aneurysm (Acute 10/22/12) q 6 mo US (PLAN 01/28 f/u to be CT with contrast at [facility] [place]) strong fam hx 4x4 cm by US at [facility] [place] 07/2805/14/2022. 6.5 x 6.[address] [facility] Colon polyp (Acute 10/16/13) 08/26/13 serrated adenoma (f/u 08/28, normal) Difficulty coping (Acute 03/24/16) Diverticulosis (Acute 11/03/14) Essential hypertension (Acute 03/02/13) Taking Amlodipine 10mg QD and Lisinipril 40mg QD. Hypertension well controlled . Today's BP is 128/60. Continue and monitor. Hyperlipidemia (Acute 10/22/12) Hypothyroidism (acquired) (Acute 10/22/12) Taking Levothyroxine 112mcg QD. Last TSH 2.55 on 12/01/16. Will check level within next 2 weeks. Pelvic organ prolapse quantification stage 4 cystocele (Chronic 03/25/16) Rx with Gelhorn pessary Smoker (Acute) Prurigo nodularis (Chronic) Non-alcoholic fatty liver disease (Chronic) Low back pain (Chronic 03/03/13) Emphysema with chronic bronchitis (Acute) Per CXR changes 08/30/18 Declines further pulmonary testing Advance directive discussed with patient (Acute) Genital herpes (Acute) 11/2018 left vulvar lesion. Rx with valacyclovir Abrasion, corneal (Acute) Right leg injury (Acute) Cellulitis and abscess of right leg (Acute) Feeling of sadness (Acute) Weight loss observed on examination (Acute) Peripheral artery disease (Acute) Therapeutic drug monitoring (Acute) Left sided abdominal pain of unknown cause (Acute) 05/2022. No improvement after Gellhorn pessary removed. CAT scan of the abdomen shows a change in the size of her abdominal aortic aneurysm. 06/2022. She denies any further back or abdominal pain. Body mass index (BMI) less than 16.5 (Acute) Medical History E-coli UTI 07/11/22. Zuñiga sensitive. Encounter for pessary maintenance 03/2022. Patient requested 70 mm Gellhorn removed. At follow-up visit patient reports improved pelvic pain and constipation. Gellhorn will be left out. Vaginal pessary present (03/02/17) 03/2016. Short stemmed #64 Gelhorn pessary. [id number]. Short stemmed 70mm Gelhorn pessary. On 2022. Pessary removed at patient's request. 03/2022. Pessary removed per pt request. 10/2019 76 mm short stem Gellhorn. 08/2020 70 mm short stem Gellhorn Stress due to illness of family member (11/24/16) Spouse . Dealing with grief. See below. Asthma Hypertension Hypothyroidism Hyperlipidemia Surgical History VEIN STRIPPING Ligation of fallopian tube Hysterectomy, Laproscopic partial; has cervix HERNIA REPAIR Cholecystectomy AORTOCORONARY BYPASS (~1998) Family History Father , age 56 Heart disease Abdominal aortic aneurysm Maternal Grandfather Heart disease Paternal Grandfather No problems noted. Maternal Grandmother Diabetes Heart disease Paternal Grandmother Diabetes Stroke [place] HISTORY Essential hypertension Heart disease Abdominal aortic aneurysm Bladder cancer 2 UNCLES Heart disease Sister , age 21 Abdominal aortic aneurysm Sister Abdominal aortic aneurysm Sister No problems noted. Brother , age 56 Alcohol abuse Brother No problems noted. Brother No problems noted. Brother No problems noted. Brother No problems noted. Son No problems noted. Son Heart disease Daughter No problems noted. Mother , 30's No problems noted. Social History Smoking/Tobacco Use Status: Current every day Tobacco Type: cigarettes Tobacco: How many years used: 60 Quit status: considering quitting Second Hand Exposure: Yes Smoking risk assessment performed?: Yes Alcohol Intake: never Drug use: Never Substance use type: does not use Counseling given: No Counseling provided: none Number of Children: 3 Do you need help understanding health information?: Rarely Pets and animals: No Sexually active: No Do you think of yourself as: straight/heterosexual Current gender identity: female What is your relationship status?: How often do you talk on the phone with friends or family?: three or more times per week How often do you get together with friends or relatives?: decline to answer How often do you attend catholic or latter-day services?: decline to answer Do you belong to any clubs or organized social groups?: no Panel score (0-1 are the most socially isolated patients): 1 Special nilam needs: No Seatbelt use: always Drive intox or ride w/intox electric truck driver: No Do you feel safe at home: Yes Do you feel safe in your relationship?: Yes Exam Const General: cooperative Nutritional Appearance: cachectic Orientation: alert, awake and confused [facility] Mouth: moist mucous membranes Eyes Conjunctivae: normal conjunctivae Sclera: normal sclerae Resp Auscultation: clear to auscultation bilaterally, no rales, no rhonchi and no wheezes Cardio Rate: regular rate and not tachycardic Rhythm: regular rhythm GI Palpation: soft, not firm, no guarding, pulsatile mass, not rigid and tender other (Diffuse); with no rebound tenderness Skin General skin exam: no rashes or lesions noted Neuro General: patient alert, patient awake and tone normal Cognition: abnormal cognition Speech: speech normal Extrem General: no edema Course Vital Signs Vital signs: Vital Signs Temperature 36.4 C L 01/19/23 10:22 Pulse 49 L 01/19/23 10:22 Respiratory Rate 15 01/19/23 10:22 Blood Pressure 103/37 L 01/19/23 10:22 Pulse Oximetry 97 01/19/23 10:22 Temperature 36.4 C L 01/19/23 10:22 Temperature Source Temporal Artery Scan 01/19/23 10:22 Pulse 52 L 01/19/23 11:16 Pulse 55 L 01/19/23 11:10 Respiratory Rate 26 H 01/19/23 11:10 Respiratory Effort Normal 01/19/23 10:44 Blood Pressure 102/27 L 01/19/23 11:16 Blood Pressure Mean 53 01/19/23 11:16 Blood Pressure Position Sitting 01/19/23 10:22 Pulse Oximetry 98 01/19/23 11:20 Oxygen Delivery Method Room Air 01/19/23 10:22 Oxygen Flow Rate 0 01/19/23 10:22 Pain Level 5 01/19/23 10:22
[2023-01-19 11:28] LABS: Lactate 2.3 mmol/L (0.6-1.4)
[2023-01-19 11:47] LABS: ALT 35 U/L (14-59); AST 33 U/L (15-37); Albumin 4.1 g/dL (3.4-5.0); Alkaline Phosphatase 159 U/L (46-116); Anion Gap 10.2 mmol/L (3-11); BUN 22 mg/dL (7-18); Bilirubin, Total 0.7 mg/dL (0.2-1.0); CO2 25.8 mmol/L (21.0-32.0); CREATININE 1.1 mg/dL (0.55-1.02); Calcium 10.3 mg/dL (8.5-10.1); Chloride 97 mmol/L (98-107); Estimated GFR 51.43 (mL/min/1.73m2); Glucose 163 mg/dL (74-106); Lipase 95 U/L (16-77); Magnesium 2.5 mg/dL (1.8-2.4); Potassium 3.6 mmol/L (3.5-5.1); Sodium 133 mmol/L (136-145); Total Protein 7.7 g/dL (6.4-8.2); Troponin I < 50 ng/L (<or=60)
--- NOTE | 2023-01-19 12:07 | NUR.NOTE ---
Nursing Note: Pt had multiple episodes of stool incontinence. This RN assisted pt with thorough cleanup. Pt in bed with 4 warm blankets and call light within reach. Pt has 3-5 visitors. This RN or other staff assisted with all requests for blankets or bed adjustments or updates.
[2023-01-19] MEDS: Normal Saline - Diluent 50 ML VIAL IJ (13:47)
[2023-01-19] MEDS: Omnipaque 350 MG/ML 500 ML BTL-Imaging package 100 ML IJ (13:48)
[2023-01-19 14:34] LABS: Source Nasal/Nares
[2023-01-19] MEDS: metroNIDAZOLE 500 MG/100 ML BAG 100 MG IVPB ×2 (14:46→21:36)
[2023-01-19 15:06] LABS: COVID-19 PCR Negative (Negative)
[2023-01-19] MEDS: levoFLOXacin 750 MG/150 ML BAG 100 MG IVPB (15:51)
[2023-01-19] MEDS: Lactated Ringers 1,000 ML 125 ML IV (15:52)
--- NOTE | 2023-01-19 16:16 | NUR.NOTE ---
Nursing Note: This RN dariela blood cultures prior to abx initiation. MD declined need for blood cultures. Blood cultures discarded when pt was admitted.
[2023-01-19 16:35] LABS: C Diff PCR Negative (Negative)
[2023-01-19 18:15] LABS: Lactate 1.9 mmol/L (0.6-1.4)
[2023-01-19] MEDS: Acetaminophen 500 MG TAB PO (20:02)
[2023-01-19] MEDS: Normal Saline Flush 10 ML SYR IVP (20:02)
[2023-01-19] MEDS: Simvastatin 20 MG TAB PO (20:02)
[2023-01-20 00:46] VITALS: BP 141/64; PULSE 68; RESP 18; TEMP 36.7; O2SAT 95
[2023-01-20] MEDS: Lactated Ringers 1,000 ML 125 ML IV ×2 (00:47→08:53)
[2023-01-20] MEDS: Acetaminophen 500 MG TAB PO ×2 (02:00→16:22)
[2023-01-20 02:23] LABS: Bilirubin Negative (Negative); Blood Small (Negative); Clarity Sl Cloudy (Clear); Glucose Negative (Negative); Ketones Negative (Negative); Leukocyte Esterase Trace (Negative); Nitrite Positive (Negative); Urobilinogen 0.2 mg/dL (Up to 0.2)
[2023-01-20 02:40] LABS: Bacteria Many HPF (Negative); C & S Indicated? Yes; Crystals Negative HPF (Negative); Epithelial Cells Few HPF (Negative); Mucus Negative (Negative); Other Cells Rare Transitional (Negative); WBC 20-50 HPF (0-5)
[2023-01-20] MEDS: metroNIDAZOLE 500 MG/100 ML BAG 100 MG IVPB ×4 (04:12→21:15)
[2023-01-20] MEDS: Levothyroxine 100 MCG TAB PO (05:15)
[2023-01-20 06:37] LABS: Abs Immature Grans 0.04 10^3/uL (0.0-0.06); Absolute Basophil Count 0.02 10^3/uL (0.0-0.2); Absolute Eosinophil Count 0.03 10^3/uL (0.0-0.7); Absolute Lymphocyte Count 1.18 10^3/uL (1.2-3.4); Absolute Monocyte Count 0.72 10^3/uL (0.1-0.8); Absolute Neutrophil Count 7.99 10^3/uL (1.2-6.7); Basophils % 0.2; Eosinophils % 0.3; HGB 10.7 g/dL (11.2-15.7); Immature Grans % 0.4; Lymphocytes % 11.8; MCH 31.2 pg (27.0-33.0); MCHC 34.5 % (32.0-36.0); MCV 90 fL (80-95); MPV 10.8 fL (8.0-11.0); Monocytes % 7.2; Neutrophils % 80.1; Platelet Count 192 10^3/uL (130-400); RBC 3.43 10^6/uL (3.93-5.22); RDW 15.7 % (11.7-14.6); RDW-SD 51.8 fL; WBC 9.98 10^3/uL (4.4-10.8)
[2023-01-20 07:01] VITALS: BP 131/58; PULSE 63; RESP 16; TEMP 37.2; O2SAT 96
[2023-01-20 07:04] LABS: ALT 27 U/L (14-59); AST 23 U/L (15-37); Alkaline Phosphatase 102 U/L (46-116); Anion Gap 10.5 mmol/L (3-11); BUN 22 mg/dL (7-18); Bilirubin, Total 0.6 mg/dL (0.2-1.0); CO2 23.5 mmol/L (21.0-32.0); CREATININE 0.9 mg/dL (0.55-1.02); Chloride 102 mmol/L (98-107); Estimated GFR 65.44 (mL/min/1.73m2); Glucose 100 mg/dL (74-106); Potassium 3.8 mmol/L (3.5-5.1); Sodium 136 mmol/L (136-145); Total Protein 6.1 g/dL (6.4-8.2)
[2023-01-20] MEDS: Aspirin 325 MG TAB PO (08:54)
[2023-01-20] MEDS: Lisinopril 20 MG TAB 40 MG PO (08:54)
[2023-01-20] MEDS: amLODIPine 10 MG TAB PO (08:55)
[2023-01-20] MEDS: Spironolactone 25 MG TAB PO (08:55)
[2023-01-20] MEDS: Metoprolol CR 100 MG TABCR PO (08:56)
--- NOTE | 2023-01-20 10:28 | CHAPLAIN ---
Arpita was sitting up in bed when I visited. I explained my role and offered support. Arpita said she wants to leave. She had three kids, and they have been checking in on her. A grandson visited last night. 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 She lives on [address], [place] far from here, and Arpita said she hopes to go home today.
--- NOTE | 2023-01-20 12:04 | W.PM.PROGNOT ---
Date of Service Date of service: 01/20/23 Time of Service: 12:04 Assessment and Plan Assessment and plan (1) Colitis: Status: Acute Assessment and plan: continue day 2 levaquin and flagyl advance diet as tolerated. stool samples unrevealing at this time. continue IV hydration (2) Abdominal aortic aneurysm: Status: Acute Assessment and plan: stable, followed outpatient by routine imaging (3) Essential hypertension: Status: Acute Assessment and plan: blood pressure controlled. routine monitoring, continue home medication (4) Hypothyroidism (acquired): Status: Acute Assessment and plan: TSH one year ago 1.03 will recheck on this hospitalization (5) Hyperlipidemia: Status: Acute Assessment and plan: continue statin. (6) Pelvic organ prolapse quantification stage 4 cystocele: Status: Chronic Assessment and plan: pessary in place, was changed and cleaned on Jan 13 Subjective Subjective Patient reports: tolerating liquids well, tolerating a regular diet, voiding w/o difficulty, diarrhea (2 episodes today, no kayleigh blood noted) and afebrile Exam Const General: cooperative Nutritional Appearance: cachectic Orientation: alert, awake and confused HENRI Mouth: moist mucous membranes Eyes Conjunctivae: normal conjunctivae Sclera: normal sclerae Resp Auscultation: clear to auscultation bilaterally Cardio Rate: regular rate Rhythm: regular rhythm GI Palpation: soft, no guarding and nontender (denies tenderness on palpation) Skin General skin exam: no rashes or lesions noted Neuro General: patient alert, patient awake and tone normal Cognition: abnormal cognition Speech: speech normal Extrem General: no edema Objective Last Vital Signs Temp 37.2 C 01/20/23 07:01 Pulse 63 01/20/23 07:01 Resp 16 01/20/23 07:01 BP 131/58 L 01/20/23 07:01 Pulse Ox 96 01/20/23 07:01 Laboratory Results - last 24 hr 01/19/23 01/19/23 01/19/23 10:30 11:00 14:30 WBC RBC Hgb Hct MCV MCH MCHC RDW Plt Count MPV Immature Gran % Neutrophils % Lymphocytes % Monocytes % Eosinophils % Basophils % Nucleated RBC % Absolute Neutrophils Absolute Lymphocytes Absolute Monocytes Absolute Eosinophils Absolute Basophils VBG Lactate Sodium Potassium Chloride Carbon Dioxide Anion Gap BUN Creatinine Est GFR (CKD-EPI 2020) Glucose Calcium Total Bilirubin AST ALT Alkaline Phosphatase Total Protein Albumin Urine Color Urine Clarity Urine pH Ur Specific [place] Urine Protein Urine Ketones Urine Blood Urine Nitrite Urine Bilirubin Urine Urobilinogen Ur Leukocyte Esterase Urine RBC Urine WBC Ur Epithelial Cells Urine Crystals Urine Bacteria Urine Mucus Urine Other Ur Culture Indicated? Urine Glucose Stl C.difficile Tox PCR Negative COVID-19 Source Nasal/Nares SARS-CoV-2 (PCR) Negative Patient ABO/Rh O Positive Antibody Screen NEGATIVE 01/19/23 01/20/23 01/20/23 18:07 01:50 06:12 WBC 9.98 RBC 3.43 L Hgb 10.7 L D Hct 31.0 L MCV 90 MCH 31.2 MCHC 34.5 RDW 15.7 H Plt Count 192 MPV 10.8 Immature Gran % 0.4 Neutrophils % 80.1 Lymphocytes % 11.8 Monocytes % 7.2 Eosinophils % 0.3 Basophils % 0.2 Nucleated RBC % 0.0 Absolute Neutrophils 7.99 H Absolute Lymphocytes 1.18 L Absolute Monocytes 0.72 Absolute Eosinophils 0.03 Absolute Basophils 0.02 VBG Lactate 1.9 H Sodium 136 Potassium 3.8 Chloride 102 Carbon Dioxide 23.5 Anion Gap 10.5 BUN 22 H Creatinine 0.9 Est GFR (CKD-EPI 2020) 65.44 Glucose 100 Calcium 9.0 Total Bilirubin 0.6 AST 23 ALT 27 Alkaline Phosphatase 102 Total Protein 6.1 L Albumin 3.0 L Urine Color Dark Yellow Urine Clarity Sl Cloudy Urine pH 5.0 Ur Specific [place] 1.010 Urine Protein 100 H Urine Ketones Negative Urine Blood Small H Urine Nitrite Positive H Urine Bilirubin Negative Urine Urobilinogen 0.2 Ur Leukocyte Esterase Trace H Urine RBC 3-5 H Urine WBC 20-50 H Ur Epithelial Cells Few Urine Crystals Negative Urine Bacteria Many Urine Mucus Negative Urine Other Rare Transitional Ur Culture Indicated? Yes Urine Glucose Negative Stl C.difficile Tox PCR COVID-19 Source SARS-CoV-2 (PCR) Patient ABO/Rh Antibody Screen Time Spent with Patient Time Spent with Patient: 25-34 minutes Time was spent: preparing to see the patient(eg.review tests), ordering medications,tests, procedures and indepentently interpreting results
[2023-01-20 14:06] LABS: HCT 31.4 % (36.0-46.0); HGB 10.8 g/dL (11.2-15.7)
[2023-01-20 14:59] VITALS: BP 149/64; PULSE 61; RESP 18; TEMP 37.2; O2SAT 96
--- NOTE | 2023-01-20 16:10 | PDOC.CMIN ---
Date of service: 01/20/23 Time of Service: 16:10 Care Management Initial Assmt Initial Assessment REASON FOR HOSPITALIZATION:: Diverticulitis, colitis PREVIOUS FUNCTIONAL STATUS/SOCIAL/FAMILY SUPPORTS:: Resides in [facility], adult children reside locally and are supportive. CURRENT FUNCTIONAL STATUS:: Arpita is lying in bed, family and friends at bedside. She is in pain and unable to fully engage in assessment; CM communicated pain assessment to RN CC for further assessment and treatment. ADVANCE DIRECTIVES:: COLST on file. Has patient been provided with info about the portal/API?: Yes Did the patient sign up for the portal?: Yes CODE STATUS:: DNR/DNI INSURANCE COVERAGE / FINANCIAL ISSUES:: Medicare A&B, [place] Supplemental PRIMARY CARE PHYSICIAN:: Danielito Sorto POTENTIAL DISCHARGE NEEDS:: Follow up appointments. PATIENT/FAMILY EDUCATION NEEDS:: Review discharge instructions, discuss Ask Me Three. ANTICIPATED BARRIERS TO DISCHARGE:: None identified. TRANSPORTATION:: Via private vehicle with family. PLAN:: Arpita continues to be monitored, CM continues to follow. [facility] All Active Problems (Updated 01/21/23 @ 07:28 by Mikey Sanchez MD) Tick bite of abdominal wall (Acute) Colitis (Acute) Left lower quadrant pain (Acute) Cyst of right breast (Acute) 05/2022 noted at time of abdominal CAT scan. Patient declines mammogram. 06/2022. 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 Taking daily ASA, Metopolol 100mg QD. Abdominal aortic aneurysm (Acute 10/22/12) q 6 mo US (PLAN 01/28 f/u to be CT with contrast [place] [facility] [place] strong fam hx 4x4 cm by US at [facility] [place] 07/2805/14/2022. 6.5 x 6.[address] [facility] Colon polyp (Acute 10/16/13) 08/26/13 serrated adenoma (f/u 08/28, normal) Difficulty coping (Acute 03/24/16) Diverticulosis (Acute 11/03/14) Essential hypertension (Acute 03/02/13) Taking Amlodipine 10mg QD and Lisinipril 40mg QD. Hypertension well controlled . Today's BP is 128/60. Continue and monitor. Hyperlipidemia (Acute 10/22/12) Hypothyroidism (acquired) (Acute 10/22/12) Taking Levothyroxine 112mcg QD. Last TSH 2.55 on 12/01/16. Will check level within next 2 weeks. Pelvic organ prolapse quantification stage 4 cystocele (Chronic 03/25/16) Rx with Gelhorn pessary Smoker (Acute) Prurigo nodularis (Chronic) Non-alcoholic fatty liver disease (Chronic) Low back pain (Chronic 03/03/13) Emphysema with chronic bronchitis (Acute) Per CXR changes 08/30/18 Declines further pulmonary testing Advance directive discussed with patient (Acute) Genital herpes (Acute) 11/2018 left vulvar lesion. Rx with valacyclovir Abrasion, corneal (Acute) Right leg injury (Acute) Cellulitis and abscess of right leg (Acute) Feeling of sadness (Acute) Weight loss observed on examination (Acute) Peripheral artery disease (Acute) Therapeutic drug monitoring (Acute) Left sided abdominal pain of unknown cause (Acute) 05/2022. No improvement after Gellhorn pessary removed. CAT scan of the abdomen shows a change in the size of her abdominal aortic aneurysm. 06/2022. She denies any further back or abdominal pain. Body mass index (BMI) less than 16.5 (Acute) Medical History E-coli UTI 07/11/22. Zuñiga sensitive. Encounter for pessary maintenance 03/2022. Patient requested 70 mm Gellhorn removed. At follow-up visit patient reports improved pelvic pain and constipation. Gellhorn will be left out. Vaginal pessary present (03/02/17) 03/2016. Short stemmed #64 Gelhorn pessary. [id number]. Short stemmed 70mm Gelhorn pessary. On 2022. Pessary removed at patient's request. 03/2022. Pessary removed per pt request. 10/2019 76 mm short stem Gellhorn. 08/2020 70 mm short stem Gellhorn Stress due to illness of family member (11/24/16) Spouse . Dealing with grief. See below. Asthma Hypertension Hypothyroidism Hyperlipidemia Surgical History VEIN STRIPPING Ligation of fallopian tube Hysterectomy, Laproscopic partial; has cervix HERNIA REPAIR Cholecystectomy AORTOCORONARY BYPASS (~1998) Family History Father , age 56 Heart disease Abdominal aortic aneurysm Maternal Grandfather Heart disease Paternal Grandfather No problems noted. Maternal Grandmother Diabetes Heart disease Paternal Grandmother Diabetes Stroke SIBLINGS HISTORY Essential hypertension Heart disease Abdominal aortic aneurysm Bladder cancer 2 UNCLES Heart disease Sister , age 21 Abdominal aortic aneurysm Sister Abdominal aortic aneurysm Sister No problems noted. Brother , age 56 Alcohol abuse Brother No problems noted. Brother No problems noted. Brother No problems noted. Brother No problems noted. Son No problems noted. Son Heart disease Daughter No problems noted. Mother , 30's No problems noted. Social History Smoking/Tobacco Use Status: Current every day Tobacco Type: cigarettes Tobacco: How many years used: 60 Quit status: considering quitting Second Hand Exposure: Yes Smoking risk assessment performed?: Yes Alcohol Intake: never Drug use: Never Substance use type: does not use Counseling given: No Counseling provided: none Housing: house Number of Children: 3 Do you need help understanding health information?: Rarely Pets and animals: No Sexually active: No Do you think of yourself as: straight/heterosexual Current gender identity: female What is your relationship status?: How often do you talk on the phone with friends or family?: three or more times per week How often do you get together with friends or relatives?: decline to answer How often do you attend mu-ism or jew services?: decline to answer Do you belong to any clubs or organized social groups?: no Panel score (0-1 are the most socially isolated patients): 1 Special nilam needs: No Seatbelt use: always Drive intox or ride w/intox electric pile driver operator: No Do you feel safe at home: Yes Do you feel safe in your relationship?: Yes
[2023-01-20] MEDS: Normal Saline Flush 10 ML SYR IVP ×2 (16:27→21:16)
[2023-01-20] MEDS: Simvastatin 20 MG TAB PO (19:52)
[2023-01-20 19:55] VITALS: BP 125/66; PULSE 66; RESP 16; TEMP 37.7; O2SAT 96
[2023-01-20 23:17] VITALS: BP 147/71; PULSE 57; RESP 16; TEMP 36.7; O2SAT 96
[2023-01-20 23:27] LABS: Campylobacter PCR Negative (Negative); Salmonella PCR Negative (Negative); Shiga Toxin PCR Negative (Negative); Shigella/Enteroinvasive Ecoli Negative (Negative)
[2023-01-21] MEDS: Normal Saline Flush 10 ML SYR IVP ×3 (04:09→20:04)
[2023-01-21] MEDS: metroNIDAZOLE 500 MG/100 ML BAG 100 MG IVPB ×4 (04:10→21:49)
[2023-01-21] MEDS: Levothyroxine 100 MCG TAB PO (05:41)
[2023-01-21 06:43] LABS: Abs Immature Grans 0.05 10^3/uL (0.0-0.06); Absolute Basophil Count 0.03 10^3/uL (0.0-0.2); Absolute Lymphocyte Count 1.39 10^3/uL (1.2-3.4); Absolute Monocyte Count 0.81 10^3/uL (0.1-0.8); Basophils % 0.3; Eosinophils % 0.4; HCT 32.9 % (36.0-46.0); HGB 11.1 g/dL (11.2-15.7); Immature Grans % 0.4; Lymphocytes % 12.3; MCH 30.2 pg (27.0-33.0); MCHC 33.7 % (32.0-36.0); MCV 90 fL (80-95); MPV 11.2 fL (8.0-11.0); Monocytes % 7.2; Neutrophils % 79.4; Platelet Count 179 10^3/uL (130-400); RBC 3.67 10^6/uL (3.93-5.22); RDW 15.9 % (11.7-14.6); RDW-SD 52.9 fL; WBC 11.29 10^3/uL (4.4-10.8)
[2023-01-21 06:44] LABS: Absolute Eosinophil Count 0.05 10^3/uL (0.0-0.7); Absolute Neutrophil Count 8.96 10^3/uL (1.2-6.7)
[2023-01-21 06:56] LABS: Anion Gap 8.8 mmol/L (3-11); BUN 13 mg/dL (7-18); CO2 23.2 mmol/L (21.0-32.0); CREATININE 0.6 mg/dL (0.55-1.02); Calcium 9.3 mg/dL (8.5-10.1); Chloride 100 mmol/L (98-107); Estimated GFR 91.82 (mL/min/1.73m2); Glucose 104 mg/dL (74-106); Potassium 3.5 mmol/L (3.5-5.1); Sodium 132 mmol/L (136-145)
[2023-01-21 07:27] VITALS: BP 130/64; PULSE 65; RESP 16; TEMP 37; O2SAT 94
[2023-01-21] MEDS: Metoprolol CR 100 MG TABCR PO (07:43)
[2023-01-21] MEDS: amLODIPine 10 MG TAB PO (07:44)
[2023-01-21] MEDS: Spironolactone 25 MG TAB PO (07:44)
[2023-01-21] MEDS: Aspirin 325 MG TAB PO (07:45)
[2023-01-21] MEDS: Lisinopril 20 MG TAB 40 MG PO (07:46)
[2023-01-21] MEDS: Doxycycline Hyclate 100 MG CAP 200 MG PO (07:46)
--- NOTE | 2023-01-21 09:54 | IN_ITS ---
PT Notes Visit Reasons: Diverticulitis Physical Therapy Inpatient Initial Evaluation Date: 01/21/2023 Referring Doctor: Cristela Villareal NP PT Orders: PT CONSULT: Eval/treat Precautions: Fall. Standard. Activity as tolerated. Patient Profile/Admitting Diagnosis: Arpita is a 78-year-old female who presented to the ED on 01/19/2023 due to abdominal pain and frequent loose stools. Patient was admitted for management of colitis, AAA, essential hypertension, hypothyroidism, and pelvic organ prolapse stage IV cystocele. PMHX: All Active Problems (Updated 01/19/23 @ 15:24 by Asif Harris MD) Colitis (Acute) Left lower quadrant pain (Acute) Cyst of right breast (Acute) 05/2022 noted at time of abdominal CAT scan. Patient declines mammogram. 06/2022. 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 Taking daily ASA, Metopolol 100mg QD. Abdominal aortic aneurysm (Acute 10/22/12) q 6 mo US (PLAN 01/28 f/u to be CT with contrast at [facility] [place]) strong fam hx 4x4 cm by US at [facility] [place] 07/2805/14/2022. 6.5 x 6.[address] at [facility] Colon polyp (Acute 10/16/13) 08/26/13 serrated adenoma (f/u 08/28, normal) Difficulty coping (Acute 03/24/16) Diverticulosis (Acute 11/03/14) Essential hypertension (Acute 03/02/13) Taking Amlodipine 10mg QD and Lisinipril 40mg QD. Hypertension well controlled . Today's BP is 128/60. Continue and monitor. Hyperlipidemia (Acute 10/22/12) Hypothyroidism (acquired) (Acute 10/22/12) Taking Levothyroxine 112mcg QD. Last TSH 2.55 on 12/01/16. Will check level within next 2 weeks. Pelvic organ prolapse quantification stage 4 cystocele (Chronic 03/25/16) Rx with Gelhorn pessary Smoker (Acute) Prurigo nodularis (Chronic) Non-alcoholic fatty liver disease (Chronic) Low back pain (Chronic 03/03/13) Emphysema with chronic bronchitis (Acute) Per CXR changes 08/30/18 Declines further pulmonary testing Advance directive discussed with patient (Acute) Genital herpes (Acute) 11/2018 left vulvar lesion. Rx with valacyclovir Abrasion, corneal (Acute) Right leg injury (Acute) Cellulitis and abscess of right leg (Acute) Feeling of sadness (Acute) Weight loss observed on examination (Acute) Peripheral artery disease (Acute) Therapeutic drug monitoring (Acute) Left sided abdominal pain of unknown cause (Acute) 05/2022. No improvement after Gellhorn pessary removed. CAT scan of the abdomen shows a change in the size of her abdominal aortic aneurysm. 06/2022. She denies any further back or abdominal pain. Body mass index (BMI) less than 16.5 (Acute) Medical History E-coli UTI 07/11/22. Zuñiga sensitive. Encounter for pessary maintenance 03/2022. Patient requested 70 mm Gellhorn removed. At follow-up visit patient reports improved pelvic pain and constipation. Gellhorn will be left out. Vaginal pessary present (03/02/17) 03/2016. Short stemmed #64 Gelhorn pessary. [id number]. Short stemmed 70mm Gelhorn pessary. On 2022. Pessary removed at patient's request. 03/2022. Pessary removed per pt request. 10/2019 76 mm short stem Gellhorn. 08/2020 70 mm short stem Gellhorn Stress due to illness of family member (11/24/16) Spouse . Dealing with grief. See below. Asthma Hypertension Hypothyroidism Hyperlipidemia Surgical History VEIN STRIPPING Ligation of fallopian tube Hysterectomy, Laproscopic partial; has cervix HERNIA REPAIR Cholecystectomy AORTOCORONARY BYPASS (~1998) Social History/Home Situation: Lives alone in a private home with 4 steps to enter with rails on both sides. Independent with all aspects of ADLs prior to admission. Still drives. Family lives close by and have been good support. Equipment Owned/DME: [facility], [facility] Subjective: Denies abdominal pain, chest pain, headache, and lightheadedness. Hopeful about going home today. Objective: General Observation: Resting in bed. Sister and son present in room upon arrival of PT. Mental Status: Alert and oriented as to person, place, time, and purpose. Able to pay attention, focus, and respond appropriately. Pain: Denies Vital Signs: BP of 153 over 65 mmHg, oxygen saturation 96% on RA, and heart rate of 60 bpm after covering the big MedSurg loop twice ROM: Right Upper Extremity: Shoulder Flexion WFL. Shoulder abduction WFL. Elbow flexion WFL. Wrist flexion WFL. Functional opening and closing of hand WFL. Left Upper Extremity: Shoulder Flexion WFL. Shoulder abduction WFL. Elbow flexion WFL. Wrist flexion WFL. Functional opening and closing of hand WFL. Right Lower Extremity: Hip flexion WFL. Hip abduction WFL. Knee flexion WFL. Ankle dorsiflexion WFL. Ankle plantarflexion WFL. Left Lower Extremity: Hip flexion WFL. Hip abduction WFL. Knee flexion WFL. Ankle dorsiflexion WFL. Ankle plantarflexion WFL. Strength: Right Upper Extremity: Shoulder flexors 4/5. Shoulder abductors 4/5. Elbow flexors 4/5. Elbow extensors 4/5. Composition Stone Applicator strong. Left Upper Extremity: Shoulder flexors 4/5. Shoulder abductors 4/5. Elbow flexors 4/5. Elbow extensors 4/5. Composition Stone Applicator strong. Right Lower Extremity: Hip flexors 4/5. Hip abductors 4/5. Knee flexors 5/5. Knee extensors 4/5. Ankle dorsiflexors 4/5. Ankle plantarflexors 4/5. Left Lower Extremity: Hip flexors 4/5. Hip abductors 4/5. Knee flexors 5/5. Knee extensors 4/5. Ankle dorsiflexors 4/5. Ankle plantarflexors 4/5. Bed Mobility/Transfers: Rolling independent Sit to supine independent Sit to stand independent Stand to sit independent Bed to reclining chair independent Reclining chair to bed independent Gait: Facilitated safe and correct performance of level surface ambulation covering a distance of 600 feet without an assistive device with step through heel toe gait pattern without report of abdominal pain, headache, chest pain, and lightheadedness throughout activity. Vital signs as above after ambulation activity requiring only supervision. Minimal path deviation noted. Stairs: Guided patient with safe and correct navigation of 6 x 4 inch steps and 4 x 6 inch steps holding onto bilateral rails with step over step gait pattern requiring only supervision assist. Balance: Static Sitting: Normal Dynamic Sitting: Normal Static Standing: Normal Dynamic Standing: Good Special Tests: Mobility Limitations Standardized Measure [facility] AM-PAC 6 clicks Basic Mobility Inpatient Short Form: Raw Score: 24 CMS Score: 0% deficit 4-Stage balance Test: Feet together 10 seconds Semi tandem 10 seconds Full tandem <10 seocnds One -legged stance <10 seconds Informed Consent/Education: Patient was instructed in purpose of PT consult Assessment: Patient requires no physical assistance or assistive device and performing all mobility ADL performance. Age-related decline in balance noted as above. No skilled services needed at this time. Patient is assessed as a 66374 low complexity based on the following: History: 78-year-old female with past medical history as indicated above Examination: As above Presentation: Stable Decision Makin low complexity Goals: N/A. PT evaluation 1 treatment session only for functional mobility training. Plan of Care/Treatment Plan: N/A. PT evaluation 1 treatment session only for functional mobility training. DISCHARGE RECOMMENDATIONS: Home when medically cleared by hospitalist. No home therapy services recommen ded at this time. TREATMENT CODE/TIME: 16122 x 17 minutes for 1 unit beginning at 9:35 AM. Thank you for the opportunity to participate in the care of this patient. Libertad Rose PT, DPT, CLT [facility] [place], [place]
[2023-01-21] MEDS: Nicotine 21 MG/24 HR PATCH TD (10:48)
[2023-01-21 15:41] VITALS: BP 170/62; PULSE 59; RESP 18; TEMP 37.2; O2SAT 97
--- NOTE | 2023-01-21 17:00 | CMPROGNOTE_ITS ---
Date of service: 01/21/23 Time of Service: 17:00 Care Management Progress Note Progress Note Text Progress Note Text: S/O: Arpita was up and moving well with PT this morning. She appeared in good spirits and was light-hearted in interaction. CM met with son, Jean Marie with Arpita's consent. He identified himself as her POA (P#[phone]). Jean Marie shared concerns central to documentation in patient chart on portal. CM deferred to FRANK Archibald who met with Jean Marie to review treatment recommendations. Chana BECKHAM reported familiy was asking for nicotene replacement, as well. CM communicated need to CLIENT SUPPORT MANAGER, continues to follow. A: 78 year old female admitted to [facility] 01/21/23 for Colitis P: Anticipate Arpita will return home when ready per MD. She will follow up with her PCP and plan of care as prescribed. CM continues to follow.
[2023-01-21] MEDS: Simvastatin 20 MG TAB PO (19:29)
--- NOTE | 2023-01-21 19:31 | W.PM.PROGNOT ---
Date of Service Date of service: 01/21/23 Time of Service: 19:31 Assessment and Plan Assessment and plan (1) Colitis: Status: Acute Assessment and plan: continue day 3 levaquin and flagyl, symptoms improving advance diet tolerated stool samples unrevealing at this time. stop IV hydration (2) Abdominal aortic aneurysm: Status: Acute Assessment and plan: stable, followed outpatient by routine imaging (3) Essential hypertension: Status: Acute Assessment and plan: blood pressure controlled. routine monitoring, continue home medication (4) Hypothyroidism (acquired): Status: Acute Assessment and plan: TSH one year ago 1.03 will recheck on this hospitalization (5) Hyperlipidemia: Status: Acute Assessment and plan: continue statin. 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 discussed with DR Sanchez (8) Tick bite: Status: Acute Assessment and plan: patient pulled an embedded tick off her this morning. was not engorged. unclear how long it was attached. received doxycycline 200 mg prophylactic dose Subjective Subjective Patient reports: no new complaints, feels better, tolerating liquids well, tolerating a regular diet, voiding w/o difficulty and afebrile; denies diarrhea Interval history since last seen: no abdominal pain today, tolerating diet. up and ambulating, tick was discovered by patient, which she removed. Exam Const General: cooperative Nutritional Appearance: cachectic Orientation: alert, awake and confused HENVA Mouth: moist mucous membranes Eyes Conjunctivae: normal conjunctivae Sclera: normal sclerae Resp Auscultation: clear to auscultation bilaterally Cardio Rate: regular rate Rhythm: regular rhythm GI Palpation: soft, no guarding and nontender (denies tenderness on palpation) Skin General skin exam: no rashes or lesions noted Neuro General: patient alert, patient awake and tone normal Cognition: abnormal cognition Speech: speech normal Extrem General: no edema Objective Last Vital Signs Temp 37.2 C 01/21/23 15:41 Pulse 59 L 01/21/23 15:41 Resp 18 01/21/23 15:41 BP 170/62 H 01/21/23 15:41 Pulse Ox 97 01/21/23 15:41 Laboratory Results - last 24 hr 01/19/23 01/21/23 11:00 06:19 WBC 11.29 H RBC 3.67 L Hgb 11.1 L Hct 32.9 L MCV 90 MCH 30.2 MCHC 33.7 RDW 15.9 H Plt Count 179 MPV 11.2 H Immature Gran % 0.4 Neutrophils % 79.4 Lymphocytes % 12.3 Monocytes % 7.2 Eosinophils % 0.4 Basophils % 0.3 Nucleated RBC % 0.0 Absolute Neutrophils 8.96 H Absolute Lymphocytes 1.39 Absolute Monocytes 0.81 H Absolute Eosinophils 0.05 Absolute Basophils 0.03 Sodium 132 L Potassium 3.5 Chloride 100 Carbon Dioxide 23.2 Anion Gap 8.8 BUN 13 Creatinine 0.6 Est GFR (CKD-EPI 2020) 91.82 Glucose 104 Calcium 9.3 Stool Campylobacter PCR Negative Stool Salmonella PCR Negative Stool Shigella PCR Negative Shiga Toxin (PCR) Negative Time Spent with Patient Time Spent with Patient: 35-49 minutes Time was spent: preparing to see the patient(eg.review tests), ordering medications,tests, procedures, indepentently interpreting results, counseling the patient and care coordination
[2023-01-21 19:35] VITALS: BP 148/60; PULSE 60; RESP 16; TEMP 36.8; O2SAT 97
[2023-01-21] MEDS: levoFLOXacin 750 MG/150 ML BAG 100 MG IVPB (20:06)
[2023-01-21 23:37] VITALS: BP 126/61; PULSE 66; RESP 16; TEMP 36.8; O2SAT 95
[2023-01-22] MEDS: metroNIDAZOLE 500 MG/100 ML BAG 100 MG IVPB ×2 (03:05→10:47)
[2023-01-22] MEDS: Levothyroxine 100 MCG TAB PO (06:00)
[2023-01-22 07:00] VITALS: BP 146/64; PULSE 71; RESP 18; TEMP 37.3; O2SAT 95
[2023-01-22] MEDS: Aspirin 325 MG TAB PO (08:15)
[2023-01-22] MEDS: amLODIPine 10 MG TAB PO (08:15)
[2023-01-22] MEDS: Lisinopril 20 MG TAB 40 MG PO (08:15)
[2023-01-22] MEDS: Nicotine 21 MG/24 HR PATCH TD (08:15)
[2023-01-22] MEDS: Spironolactone 25 MG TAB PO (08:15)
[2023-01-22] MEDS: Metoprolol CR 100 MG TABCR PO (08:15)
--- NOTE | 2023-01-22 09:24 | PDOC.CMPRO ---
Date of service: 01/22/23 Time of Service: 09:24 Care Management Progress Note Progress Note Text Progress Note Text: S/O: Arpita A: 78 year old female admitted to [facility] 01/21/23 for Colitis P: Anticipate Arpita will return home when ready per MD. She will follow up with her PCP and plan of care as prescribed. CM continues to follow.
--- NOTE | 2023-01-22 10:12 | PGE_ITS ---
Date of Service Date of service: 01/22/23 Time of Service: 10:12 Assessment and Plan Assessment and plan (1) Colitis: Status: Acute Assessment and plan: continue day 3 levaquin and flagyl, symptoms improving advance diet tolerated stool samples unrevealing at this time. stop IV hydration (2) Abdominal aortic aneurysm: Status: Acute Assessment and plan: stable, followed outpatient by routine imaging (3) Essential hypertension: Status: Acute Assessment and plan: blood pressure controlled. routine monitoring, continue home medication (4) Hypothyroidism (acquired): Status: Acute Assessment and plan: TSH one year ago 1.03 will recheck on this hospitalization (5) Hyperlipidemia: Status: Acute Assessment and plan: continue statin. 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 discussed with DR Sanchez (8) Tick bite: Status: Acute Assessment and plan: patient pulled an embedded tick off her this morning. was not engorged. unclear how long it was attached. received doxycycline 200 mg prophylactic dose Subjective Subjective Patient reports: no new complaints, feels better, still having pain (The patient reports that pain is well manage with current pain medicine regimen), pain is less (Pain was /10 and /10 after pain medicine administration), tolerating liquids well, tolerating a regular diet, voiding w/o difficulty, bowel movement, shortness of breath and afebrile; denies flatus, diarrhea, nausea or vomiting Exam Narrative Exam Narrative: Constitutional The patient is sitting in chair/ lying in bed comfortable and cooperative during the interview. The patient is well groomed without acute distress and has average body habitus/is obese/ is thin. HENMT: Head is atraumatic, normocephalic, no lymphadenopathy. Facial structures with normal appearance Eyes: Well aligned, intact ROM Neck: Normal ROM, no meningeal signs Neuro:alert and oriented to self, person, place time and situation. No neurological focal deficit, PERRLA Chest:Chest is symmetrical and normal appearance Resp: Normal respiratory pattern, speaks in full sentences, unlabored breathing, clear lung bilaterally Cardio: regular rhythm, S1, S2, no murmur, capillary refill<3 sec., bilateral ra dial and dorsalis pedis pulses are positive, palpable GI: Abdomen is not distended, soft and non tender, bowel sounds are present : Negative Costovertebral angle tenderness, no bladder distension Back/spine/Pelvis: No back tenderness, normal alignment Integumentary: No skin lesions or rash Extremities: strength 5/5 to bilateral lower and upper extremities Psych: RASS 0, congruent mood and normal affect. Objective Last Vital Signs Temp 37.3 C 01/22/23 07:00 Pulse 71 01/22/23 07:00 Resp 18 01/22/23 07:00 BP 146/64 H 01/22/23 07:00 Pulse Ox 95 01/22/23 07:00
[2023-01-22 15:02] VITALS: BP 165/70; PULSE 62; RESP 16; TEMP 37.2; O2SAT 98
--- NOTE | 2023-01-22 15:24 | PDOC.CMDIS ---
Date of service: 01/22/23 Time of Service: 15:24 LACE Index Scoring Tool Questions: Length of Stay (in days): 3 Was the patient admitted via the E.D.?: Yes Comorbidities: Chronic Pulmonary Disease E.D. Visits: 1 Answers: Total Score: 9 Risk of Readmission: Low Risk Care Management Discharge Plan Reason for Hospitalization: Diverticulitis, colitis Discharge Plan: Arpita will return home with new home health orders for nursing and OT. She will follow up with her PCP and plan of care as prescribed and transport with her son Jean Marie. Patient/Family Education Needs: Review discharge instructions, limitations, activity, follow up plan, discuss Ask Me Three. Services Needed at Discharge: Home Health Care Services
--- NOTE | 2023-01-22 16:47 | W.PM.DS.N ---
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: Status: Chronic (7) Discharge planning issues: Status: Acute (8) Tick bite: Status: Acute Discharge Plan Disposition Patient Disposition: Home W/Home Health Services Condition: Improving Discharge Details Reason For Visit: Diverticulitis Admit Date/Time: 01/19/23 14:32 Admit Provider: Naomy Rubio Attending Provider: Naomy Rubio Primary Care Provider: Danielito Henry Hospital Course Hospital Course: This 78-year-old female with history including but not limited to ?diverticulosis, abdominal aortic aneurysm, hypertension, hyperlipidemia, hypothyroidism, nonalcoholic fatty liver disease, presented to the Ed at [facility] on 01/19 via EMS with chief complaint of abdominal discomfort with associated frequent loose stool starting in the morning. Labs in the ED were unremarkable except for a VBG lactate at 2.3. CT of the Abdomen and pelvis as well as bedside POCUS revealed an aortic abdominal aneurysm; not dissecting; questioning colitis versus diverticulitis. In the ED the patient was treated with Levofloxacin and metronidazole. The hospitalist was consulted and the patient was admitted to the medical surgical floor for evaluation and management of colitis versus diverticulitis, abdominal discomfort and loose stools. The patient has no further c/o abdominal pain, is tolerating oral intake and agrees with the plan to go home on oral antibiotics, home health occupational therapy for bathing, ?and nursing for medicine management. The patient will have to f/u with her PCP in one week. Home Meds and New Rx's Prescriptions: New metronidazole 500 mg Tablet 500 mg PO TID Qty: 18 0RF levofloxacin 750 mg Tablet 750 mg PO Q48H Qty: 4 0RF Continued aspirin 325 mg tablet 325 mg PO DAILY Ensure Liquid 8 ml PO TID Qty: 5688 12RF simvastatin 20 mg tablet 20 mg PO DAILY Qty: 90 3RF spironolactone 25 mg tablet 25 mg PO DAILY Qty: 90 1RF acetaminophen [Tylenol Extra Strength] 500 MG tablet 1 tab PO BID PRN Patient Comments: took over a month ago CENTRUM SILVER TABLET 1 EACH tablet 1 tab PO DAILY vitamin E succinate 400 UNIT tablet 1 tab PO DAILY levothyroxine 100 mcg tablet 100 mcg PO DAILY Qty: 90 2RF amlodipine 10 mg tablet See Rx Instructions .ROUTE .COMPLEX Qty: 90 2RF Dose Instruction: TAKE ONE TABLET BY MOUTH EVERY DAY Rx Instructions: TAKE ONE TABLET BY MOUTH EVERY DAY metoprolol succinate 100 mg tablet extended release 24 hr See Rx Instructions .ROUTE .COMPLEX Qty: 90 2RF Dose Instruction: TAKE ONE TABLET BY MOUTH EVERY DAY Rx Instructions: TAKE ONE TABLET BY MOUTH EVERY DAY lisinopril 40 mg tablet See Rx Instructions .ROUTE .COMPLEX Qty: 90 2RF Dose Instruction: TAKE ONE TABLET BY MOUTH EVERY DAY Rx Instructions: TAKE ONE TABLET BY MOUTH EVERY DAY Discharge Instructions Stand Alone Forms: Nursing Discharge Form Referrals: Danielito Henry NP [Primary Care Provider] - 01/26/23 9:00 am (This 78-year-old female with history including but not limited to diverticulosis, abdominal aortic aneurysm, hypertension, hyperlipidemia, hypothyroidism, nonalcoholic fatty liver disease, presented to the ED at [facility] on 01/19 via EMS with chief complaint of abdominal discomfort with associated frequent loose stool starting in the morning. Labs in the ED were unremarkable except for a VBG lactate at 2.3. CT of the Abdomen and pelvis as well as bedside POCUS revealed an aortic abdominal aneurysm; not dissecting; questioning colitis versus diverticulitis. In the ED the patient was treated with Levofloxacin and metronidazole. The hospitalist was consulted and the patient was admitted to the medical surgical floor for evaluation and management of colitis versus diverticulitis, abdominal discomfort and loose stools. The patient has no further c/o abdominal pain, is tolerating oral intake and agrees with the plan to go home on oral antibiotics, home health occupational therapy for bathing, and nursing for medicine management. The patient will have to f/u with her PCP in one week.) Activity:: Activity as Tolerated Equipment/Supplies:: No Equipment Needed Diet:: As Tolerated Discharge Orders Discharge Orders: Discharge Order (Routine); Ordered 01/22/23 Ordered By: Jazmine Martínez DS: Summary Time Spent with Patient providing and/or coordinating discharge services: Greater than 30 minutes Status at Discharge Functional status at discharge: independent ambulation Overall status at discharge: patient is progressing back to baseline Mental Status: mental status grossly normal Speech and Movement: speech and movement normal Mood: congruent mood Affect: normal affect Exam Narrative Exam Narrative: Constitutional The patient is sitting on the edge of the bed comfortable and cooperative during the interview. The patient is without acute distress HENMT: Head is atraumatic, normocephalic, no lymphadenopathy. Facial structures with normal appearance Eyes: Well aligned, Neck: Normal ROM, Neuro:alert and oriented to self, person, place and situation, but forgetfull about dates and what she ate and the medicine she had. No neurological focal deficit, Chest:Chest is symmetrical and normal appearance Resp: Normal respiratory pattern, speaks in full sentences, unlabored breathing, clear lung bilaterally Cardio: regular rhythm, S1, S2, no murmur, capillary refill<3 sec., bilateral radial and dorsalis pedis pulses are positive, palpable GI: Abdomen is not distended, soft and non tender, bowel sounds are present : Negative Costovertebral angle tenderness, no bladder distension Back/spine/Pelvis: No back tenderness, normal alignment Integumentary: No skin lesions or rash Extremities: strength 5/5 to bilateral lower and upper extremities Psych: RASS 0, congruent mood and normal affect. Psych Mental Status: mental status grossly normal Speech and Movement: speech and movement normal Mood: congruent mood Affect: normal affect DS: Data Vitals/I&O Vitals and I&O: Vital Signs Temperature 37.2 C 01/22/23 15:02 Temperature Source Tympanic 01/22/23 15:02 Pulse 62 01/22/23 15:02 Pulse Rhythm Irregular 01/22/23 15:39 Pulse 63 01/19/23 14:50 Respiratory Rate 16 01/22/23 15:02 Respiratory Effort Normal 01/22/23 15:39 Respiratory Depth Normal 01/22/23 15:39 Respiratory Pattern Normal 01/22/23 15:39 Blood Pressure 165/70 H 01/22/23 15:02 Blood Pressure Mean 80 01/19/23 15:04 Blood Pressure Position Sitting 01/19/23 10:22 Pulse Oximetry 98 01/22/23 15:02 Oxygen Delivery Method Room Air 01/22/23 15:02 Oxygen Flow Rate 0 01/22/23 15:02 Pain Level 0 01/22/23 15:02 Intake & Output 01/21/23 01/22/23 01/22/23 23:59 11:59 23:59 Intake Total 350 / 650 260 / 600 340 / 600 Output Total 300 / 600 Balance 50 / 50 260 / 600 340 / 600 Intake: IV 350 / 650 110 / 210 100 / 210 Oral 150 / 390 240 / 390 Output: Urine 300 / 600 Other: Urine Color Yellow Urine Appearance Clear Urine Odor None Stool Size Small Stool Characteristics Liquid Voiding Methods Toilet Toilet PFSH All Active Problems (Updated 01/21/23 @ 19:34 by Cristela Villareal NP) Tick bite (Acute) Discharge planning issues (Acute) Tick bite of abdominal wall (Acute) Colitis (Acute) Left lower quadrant pain (Acute) Cyst of right breast (Acute) 05/2022 noted at time of abdominal CAT scan. Patient declines mammogram. 06/2022. 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 Taking daily ASA, Metopolol 100mg QD. Abdominal aortic aneurysm (Acute 10/22/12) q 6 mo US (PLAN 01/28 f/u [place] [facility] [place] strong fam hx [place]4 [place] [facility] [place]. 6.5 x 6.[address] at [facility] Colon polyp (Acute 10/16/13) 08/26/13 serrated adenoma (f/u 08/28, normal) Difficulty coping (Acute 03/24/16) Diverticulosis (Acute 11/03/14) Essential hypertension (Acute 03/02/13) Taking Amlodipine 10mg QD and Lisinipril 40mg QD. Hypertension well controlled . Today's BP is 128/60. Continue and monitor. Hyperlipidemia (Acute 10/22/12) Hypothyroidism (acquired) (Acute 10/22/12) Taking Levothyroxine 112mcg QD. Last TSH 2.55 on 12/01/16. Will check level within next 2 weeks. Pelvic organ prolapse quantification stage 4 cystocele (Chronic 03/25/16) Rx with Gelhorn pessary Smoker (Acute) Prurigo nodularis (Chronic) Non-alcoholic fatty liver disease (Chronic) Low back pain (Chronic 03/03/13) Emphysema with chronic bronchitis (Acute) Per CXR changes 08/30/18 Declines further pulmonary testing Advance directive discussed with patient (Acute) Genital herpes (Acute) 11/2018 left vulvar lesion. Rx with valacyclovir Abrasion, corneal (Acute) Right leg injury (Acute) Cellulitis and abscess of right leg (Acute) Feeling of sadness (Acute) Weight loss observed on examination (Acute) Peripheral artery disease (Acute) Therapeutic drug monitoring (Acute) Left sided abdominal pain of unknown cause (Acute) 05/2022. No improvement after Gellhorn pessary removed. CAT scan of the abdomen shows a change in the size of her abdominal aortic aneurysm. 06/2022. She denies any further back or abdominal pain. Body mass index (BMI) less than 16.5 (Acute) Medical History E-coli UTI 07/11/22. Zuñiga sensitive. Encounter for pessary maintenance 03/2022. Patient requested 70 mm Gellhorn removed. At follow-up visit patient reports improved pelvic pain and constipation. Gellhorn will be left out. Vaginal pessary present (03/02/17) 03/2016. Short stemmed #64 Gelhorn pessary. [id number]. Short stemmed 70mm Gelhorn pessary. On 2022. Pessary removed at patient's request. 03/2022. Pessary removed per pt request. 10/2019 76 mm short stem Gellhorn. 08/2020 70 mm short stem Gellhorn Stress due to illness of family member (11/24/16) Spouse . Dealing with grief. See below. Asthma Hypertension Hypothyroidism Hyperlipidemia Surgical History VEIN STRIPPING Ligation of fallopian tube Hysterectomy, Laproscopic partial; has cervix HERNIA REPAIR Cholecystectomy AORTOCORONARY BYPASS (~1998) Family History Father , age 56 Heart disease Abdominal aortic aneurysm Maternal Grandfather Heart disease Paternal Grandfather No problems noted. Maternal Grandmother Diabetes Heart disease Paternal Grandmother Diabetes Stroke [place] HISTORY Essential hypertension Heart disease Abdominal aortic aneurysm Bladder cancer 2 UNCLES Heart disease Sister , age 21 Abdominal aortic aneurysm Sister Abdominal aortic aneurysm Sister No problems noted. Brother , age 56 Alcohol abuse Brother No problems noted. Brother No problems noted. Brother No problems noted. Brother No problems noted. Son No problems noted. Son Heart disease Daughter No problems noted. Mother , 30's No problems noted. Social History Smoking/Tobacco Use Status: Current every day Tobacco Type: cigarettes Tobacco: How many years used: 60 Quit status: considering quitting Second Hand Exposure: Yes Smoking risk assessment performed?: Yes Alcohol Intake: never Drug use: Never Substance use type: does not use Counseling given: No Counseling provided: none Housing: house Number of Children: 3 Do you need help understanding health information?: Rarely Pets and animals: No Sexually active: No Do you think of yourself as: straight/heterosexual Current gender identity: female What is your relationship status?: How often do you talk on the phone with friends or family?: three or more times per week How often do you get together with friends or relatives?: decline to answer How often do you attend islam or amish services?: decline to answer Do you belong to any clubs or organized social groups?: no Panel score (0-1 are the most socially isolated patients): 1 Special nilam needs: No Seatbelt use: always Drive intox or ride w/intox driver medic: No Do you feel safe at home: Yes Do you feel safe in your relationship?: Yes Time Spent with Patient Time Spent with Patient: >85 minutes Time was spent: preparing to see the patient(eg.review tests), ordering medications,tests, procedures, indepentently interpreting results, counseling the patient and care coordination
--- NOTE | 2023-01-22 17:29 | PDOC.HHF2F_ITS ---
Home Health Referral Home Health Orders Clinical synopsis of why skilled professionals are needed: This 78-year-old female with history including but not limited to ?diverticulosis, abdominal aortic aneurysm, hypertension, hyperlipidemia, hypothyroidism, nonalcoholic fatty liver disease, presented to the Ed at [facility] on 01/19 via EMS with chief complaint of abdominal discomfort with associated frequent loose stool starting in the morning. Labs in the ED were unremarkable except for a VBG lactate at 2.3. CT of the Abdomen and pelvis as well as bedside POCUS revealed an aortic abdominal aneurysm; not dissecting; questioning colitis versus diverticulitis. In the ED the patient was treated with Levofloxacin and metronidazole. The hospitalist was consulted and the patient was admitted to the medical surgical floor for evaluation and management of colitis versus diverticulitis, abdominal discomfort and loose stools. The patient has no further c/o abdominal pain, is tolerating oral intake and agrees with the plan to go home on oral antibiotics, home health occupational therapy for bathing, ?a nd nursing for medicine management. The patient will have to f/u with her PCP in one week. Medical diagnosis necessitation home health referral: The patient needs assistance for her antibiotics ( Levaquin PO Q 48 hours and Flagyl TID with meals) due to decreased renal function. The patient is forgetful. Registered Nurse: Check all that apply Instruct on new or changed medication(s)/assess compliance: Ordered Assess for exacerbation of medical condition, instruct patient/caregivers on signs and symptoms to report for early detection: Ordered Occupational Therapist: Evaluate and treat for patient unable to perform ADL/IADL/self-care: Ordered Encounter Date and Reason: I certify that a FTF encounter for this patient was performed on January 22, 2023 and that such encounter was related to the primary reason the patient requires home health services. The encounter was conducted in the following manner: * By me as the certifying physician, ACCOUNT DEVELOPMENT MANAGER, PA or * By an inpatient physician, ACCOUNT DEVELOPMENT MANAGER or PA during an inpatient stay who communicated findings to me, Certification And Authentication I certify that I composed the above information based on my clinical judgment relating to this patient's medical condition and, if applicable, clinical findings communicated to me by the NPP or inpatient physician who performed the FTF encounter. Name of Provider that will be monitoring home health services: PCP
--- NOTE | 2023-01-28 14:12 | HPE_ITS ---
Date of service: 01/19/23 Time of Service: 18:00 Assessment and Plan Assessment and plan (1) Colitis: Status: Acute Assessment and plan: treat with levaquin and flagyl due to pcn allergy advance diet tolerated stool samples pending continue IV hydration (2) Abdominal aortic aneurysm: Status: Acute Assessment and plan: stable, followed outpatient by routine imaging (3) Essential hypertension: Status: Acute Assessment and plan: blood pressure controlled. routine monitoring, continue home medication (4) Hypothyroidism (acquired): Assessment and plan: TSH one year ago 1.03 will recheck on this hospitalization (5) Hyperlipidemia: Assessment and plan: continue statin. (6) Pelvic organ prolapse quantification stage 4 cystocele: Status: Chronic Assessment and plan: pessary in place, was changed and cleaned on Jan 13 (7) Discharge planning issues: Status: Deleted Assessment and plan: anticipate discharge to home, consult PT for discharge recommendations. discussed with DR Rubio Review of Systems All systems reviewed & are unremarkable except as noted in HPI and below PFSH All Active Problems (Updated 01/28/23 @ 11:30 by Danielito Sorto NP) Cognitive impairment (Acute) Petechial rash (Acute) Tick bite of abdominal wall (Acute) Colitis (Acute) Left lower quadrant pain (Acute) Cyst of right breast (Acute) 05/2022 noted at time of abdominal CAT scan. Patient declines mammogram. 06/2022. 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 Taking daily ASA, Metopolol 100mg QD. Abdominal aortic aneurysm (Acute 10/22/12) q 6 mo US (PLAN 01/28 f/u to be CT with contrast at [facility]) strong fam hx 4x4 cm by US at [facility] 07/2805/14/2022. 6.5 x 6.[address] at [facility] Colon polyp (Acute 10/16/13) 08/26/13 serrated adenoma (f/u 08/28, normal) Difficulty coping (Acute 03/24/16) Diverticulosis (Acute 11/03/14) Essential hypertension (Acute 03/02/13) Taking Amlodipine 10mg QD and Lisinipril 40mg QD. Hypertension well controlled . Today's BP is 128/60. Continue and monitor. Pelvic organ prolapse quantification stage 4 cystocele (Chronic 03/25/16) Rx with Gelhorn pessary Smoker (Acute) Prurigo nodularis (Chronic) Non-alcoholic fatty liver disease (Chronic) Low back pain (Chronic 03/03/13) Emphysema with chronic bronchitis (Acute) Per CXR changes 08/30/18 Declines further pulmonary testing Advance directive discussed with patient (Acute) Genital herpes (Acute) 11/2018 left vulvar lesion. Rx with valacyclovir Abrasion, corneal (Acute) Right leg injury (Acute) Cellulitis and abscess of right leg (Acute) Feeling of sadness (Acute) Weight loss observed on examination (Acute) Peripheral artery disease (Acute) Therapeutic drug monitoring (Acute) Left sided abdominal pain of unknown cause (Acute) 05/2022. No improvement after Gellhorn pessary removed. CAT scan of the abdomen shows a change in the size of her abdominal aortic aneurysm. 06/2022. She denies any further back or abdominal pain. Body mass index (BMI) less than 16.5 (Acute) Medical History E-coli UTI 07/11/22. Zuñiga sensitive. Encounter for pessary maintenance 03/2022. Patient requested 70 mm Gellhorn removed. At follow-up visit patient reports improved pelvic pain and constipation. Gellhorn will be left out. Vaginal pessary present (03/02/17) 03/2016. Short stemmed #64 Gelhorn pessary. [id number]. Short stemmed 70mm Gelhorn pessary. On 2022. Pessary removed at patient's request. 03/2022. Pessary removed per pt request. 10/2019 76 mm short stem Gellhorn. 08/2020 70 mm short stem Gellhorn Stress due to illness of family member (11/24/16) Spouse . Dealing with grief. See below. Asthma Hypertension Hypothyroidism Hyperlipidemia Surgical History VEIN STRIPPING Ligation of fallopian tube Hysterectomy, Laproscopic partial; has cervix HERNIA REPAIR Cholecystectomy AORTOCORONARY BYPASS (~1998) Family History Father , age 56 Heart disease Abdominal aortic aneurysm Maternal Grandfather Heart disease Paternal Grandfather No problems noted. Maternal Grandmother Diabetes Heart disease Paternal Grandmother Diabetes Stroke SIBLINGS HISTORY Essential hypertension Heart disease Abdominal aortic aneurysm Bladder cancer 2 UNCLES Heart disease Sister , age 21 Abdominal aortic aneurysm Sister Abdominal aortic aneurysm Sister No problems noted. Brother , age 56 Alcohol abuse Brother No problems noted. Brother No problems noted. Brother No problems noted. Brother No problems noted. Son No problems noted. Son Heart disease Daughter No problems noted. Mother , 30's No problems noted. Social History Smoking/Tobacco Use Status: Current every day Tobacco Type: cigarettes Tobacco: How many years used: 60 Quit status: considering quitting Second Hand Exposure: Yes Smoking risk assessment performed?: Yes Alcohol Intake: never Drug use: Never Substance use type: does not use Counseling given: No Counseling provided: none Housing: house Number of Children: 3 Do you need help understanding health information?: Rarely Pets and animals: No Sexually active: No Do you think of yourself as: straight/heterosexual Current gender identity: female What is your relationship status?: How often do you talk on the phone with friends or family?: three or more times per week How often do you get together with friends or relatives?: decline to answer How often do you attend jehovah's witness or episcopal services?: decline to answer Do you belong to any clubs or organized social groups?: no Panel score (0-1 are the most socially isolated patients): 1 Special nilam needs: No Seatbelt use: always Drive intox or ride w/intox 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: No Do you feel safe at home: Yes Do you feel safe in your relationship?: Yes Meds Allergies and Home Medications Allergies Allergy/AdvReac Type Severity Reaction Status Date / Time Penicillins Allergy Mild SWELLING Verified 01/28/23 10:58 tetanus and diphtheria Allergy Mild LOCAL Verified 01/28/23 10:58 toxoids REACTION; [Tetanus\T\Diphtheria Toxoid] REDNESS atorvastatin Allergy Unknown SKIN RASH Verified 01/28/23 10:58 gemfibrozil Allergy Unknown SKIN RASH Verified 01/28/23 10:58 naproxen AdvReac Intermediate GI UPSET Verified 01/28/23 10:58 hydrochlorothiazide AdvReac Mild HYPONATREMI Verified 01/28/23 10:58 A niacin AdvReac Unknown Verified 01/28/23 10:58 Home Medications Medication Instructions Recorded Confirmed Type Centrum Silver Tablet 1 tab PO DAILY 07/05/12 01/28/23 History acetaminophen 500 mg tablet 1 tab PO BID PRN 07/05/12 01/28/23 History (Tylenol Extra Strength) vitamin E succinate 268 mg (400 1 tab PO DAILY 07/05/12 01/28/23 History unit) tablet food supplemt, lactose-reduced 8 ml PO TID #5,688 mL 06/06/22 01/28/23 Rx (Ensure oral liquid) levothyroxine 100 mcg tablet 100 mcg PO DAILY #90 tab-caps 06/17/22 01/28/23 Rx simvastatin 20 mg tablet 20 mg PO DAILY #90 tab-caps 10/07/22 01/28/23 Rx spironolactone 25 mg tablet 25 mg PO DAILY #90 tabs 10/07/22 01/28/23 Rx amlodipine 10 mg tablet See Rx Instructions .Route 10/17/22 01/28/23 Rx .COMPLEX #90 tabs lisinopril 40 mg tablet See Rx Instructions .Route 10/17/22 01/28/23 Rx .COMPLEX #90 tabs metoprolol succinate 100 mg See Rx Instructions .Route 10/17/22 01/28/23 Rx tablet,extended release 24 hr .COMPLEX #90 tabs Exam Const General: cooperative Nutritional Appearance: cachectic Orientation: alert, awake and confused HENMT Mouth: moist mucous membranes Eyes Conjunctivae: normal conjunctivae Sclera: normal sclerae Resp Auscultation: clear to auscultation bilaterally Cardio Rate: regular rate Rhythm: regular rhythm GI Palpation: soft, no guarding and nontender (denies tenderness on palpation) Skin General skin exam: no rashes or lesions noted Neuro General: patient alert, patient awake and tone normal Cognition: abnormal cognition Speech: speech normal Extrem General: no edema Results Labs 01/21/23 06:19 01/21/23 06:19 Last Vital Signs Temp 37.2 C 01/22/23 15:02 Pulse 62 01/22/23 15:02 Resp 16 01/22/23 15:02 BP 165/70 H 01/22/23 15:02 Pulse Ox 98 01/22/23 15:02 Time Spent Time spent with Patient: 40-54 minutes Time was spent: preparing to see the patient(eg.review tests), obtaining and/or reviewing separately otained hiistory, ordering medications,tests, procedures, indepentently interpreting results and counseling the patient
== END 2023-01-22 18:03 | disposition home health service (06) | DRG 392 ==
LOC: ER 15:24 → MS 15:37
PROVIDERS: Nurse Practitioner Acute Care; Admitting Provider Internal Medicine; Emergency Provider Student in an Organized Health Care Education/Training Program; PCP Nurse Practitioner Family; Visit Provider Internal Medicine
DX: K57.32 Diverticulitis of large intestine without perforation or abscess without bleeding (principal); R64 Cachexia; Z68.1 Body mass index [BMI] 19.9 or less, adult; K52.9 Noninfective gastroenteritis and colitis, unspecified; I10 Essential (primary) hypertension; I71.40 Abdominal aortic aneurysm, without rupture, unspecified; E78.5 Hyperlipidemia, unspecified; N81.10 Cystocele, unspecified; K76.0 Fatty (change of) liver, not elsewhere classified
CPT/HCPCS: 00123; 36415; 80048; 80053; 83690; 86850; 86900; 86901; 87493; 87505; 87635; 96365; 96368; 97161; 99285; 74174; 81003; 81015; 83605; 83630; 83735; 84484; 85014; 85018; 85025; 87086; 99223; 99233; 99239; J1956

== ENCOUNTER 2023-01-28 12:57 | Outpatient (REF) | payer MEDICARE, SELFPAY ==
[2023-01-28 13:20] LABS: Abs Immature Grans 0.07 10^3/uL (0.0-0.06); Absolute Basophil Count 0.04 10^3/uL (0.0-0.2); Absolute Eosinophil Count 0.11 10^3/uL (0.0-0.7); Absolute Lymphocyte Count 1.21 10^3/uL (1.2-3.4); Absolute Monocyte Count 0.73 10^3/uL (0.1-0.8); Absolute Neutrophil Count 4.76 10^3/uL (1.2-6.7); Basophils % 0.6; Eosinophils % 1.6; HCT 33.9 % (36.0-46.0); HGB 11.4 g/dL (11.2-15.7); Lymphocytes % 17.5; MCH 30.9 pg (27.0-33.0); MCHC 33.6 % (32.0-36.0); MCV 92 fL (80-95); Monocytes % 10.5; Neutrophils % 68.8; Platelet Count 267 10^3/uL (130-400); RBC 3.69 10^6/uL (3.93-5.22); RDW 16.4 % (11.7-14.6); RDW-SD 55.5 fL; WBC 6.92 10^3/uL (4.4-10.8)
[2023-01-28 13:53] LABS: ALT 33 U/L (14-59); AST 36 U/L (15-37); Albumin 3.5 g/dL (3.4-5.0); Alkaline Phosphatase 96 U/L (46-116); Anion Gap 9.8 mmol/L (3-11); BUN 12 mg/dL (7-18); Bilirubin, Total 0.3 mg/dL (0.2-1.0); CO2 25.2 mmol/L (21.0-32.0); CREATININE 0.7 mg/dL (0.55-1.02); Calcium 9.3 mg/dL (8.5-10.1); Chloride 103 mmol/L (98-107); Estimated GFR 88.47 (mL/min/1.73m2); Glucose 101 mg/dL (74-106); Potassium 3.8 mmol/L (3.5-5.1); Sodium 138 mmol/L (136-145); TSH (W/Ref FT4) 0.71 uIU/mL (0.36-3.74); Total Protein 6.3 g/dL (6.4-8.2); Vitamin B12 686 pg/mL (193-986)
[2023-01-29 10:56] LABS: Syphilis Serology (RPR) Negative (Negative)
== END 2023-01-28 12:58 | disposition home or self-care (01) ==
LOC: LBN 12:57
PROVIDERS: PCP Nurse Practitioner Family; Visit Provider Nurse Practitioner Family
DX: K76.0 Fatty (change of) liver, not elsewhere classified (principal); R41.89 Other symptoms and signs involving cognitive functions and awareness; R23.3 Spontaneous ecchymoses; E03.9 Hypothyroidism, unspecified; I10 Essential (primary) hypertension; Z79.899 Other long term (current) drug therapy
CPT/HCPCS: 80053; 82607; 84443; 85025; 86592

== ENCOUNTER → 2023-02-24 01:26 | Outpatient (CLI) | payer MEDICARE, SELFPAY ==
--- NOTE | 2023-02-24 07:15 | DI.CT_ITS ---
Exam(s) CT ABDOMEN PELVIS CTA EXAM: CT ABDOMEN PELVIS CTA CLINICAL HISTORY: increasing llq pain, r10.32,aaa,i71.4. TECHNIQUE: Imaging Protocol: Axial CT angiography was performed with multi-slice acquisition and m ulti-planar and/or 3D reconstructions. CONTRAST MATERIAL: Intravenous: Omnipaque 350 Contrast volume:100mL Oral: No COMPARISON: CT UPPER ABD WITH CONTRAST (P) from 07/01/2007 CT ABD PELVIS WITH CONTRAST from 10/22/[address] ABDOMEN PELVIS W from 05/14/[address] ABDOMEN PELVIS CTA from 01/19/2023 FINDINGS: ABDOMEN AND PELVIS: Abdomen: Celiac axis/mesenteric arteries: There is atherosclerosis at the origin of the superior mesenteric ar arnaud with 50-75 percent stenosis at the origin. There is atherosclerosis at the origin of the celiac axis. No significant stenosis is seen. Renal Arteries: There is atherosclerosis at the origins of both renal arteries. There is less than 5 0 percent stenosis. Delete Aorta: There is an infrarenal abdominal aortic aneurysm measuring 7 cm in maximum diameter. Atheros clerosis is present. There is no evidence of dissection. Pelvis: Iliac Arteries: There is no evidence of occlusion or aneurysm. There is atherosclerosis seen in the iliac arteries bilaterally. There is less than 50 percent stenosis noted. Common Femoral Arteries: There is atherosclerosis present with less than 50 percent stenosis. No oc clusion is seen. ABDOMEN: Lung bases: Unremarkable. Liver: Normal density. There are a few tiny hypodensities in the liver. They are stable. There too small for further characterization. There is a cyst in the left lobe of the liver. This is stable. Portal, Superior Mesenteric, and Splenic Veins: Due to the bolus timing, the veins are not adequately opacified. Gallbladder and Biliary Tract: Status post cholecystectomy. Stable intra and extrahepatic biliary du ctal dilatation. Pancreas: Stable appearance of the pancreas. Stable mild prominence of the pancreatic duct. No evid ence of a pancreatic mass is seen at this time. Spleen: Normal. Adrenals: No masses seen. Kidneys: Normal size, contour and axis. No radiodense stones or obstructive uropathy. Stable renal cy sts. Bowel: There is diverticulosis of the colon without evidence of acute diverticulitis. There is no ev idence of bowel obstruction or bowel wall thickening. No evidence of appendicitis. Peritoneal Cavity: No ascites, collection or mesenteric inflammatory response. No free air. Lymph Nodes: Within normal limits. Bones: The bones are osteopenic. Age-appropriate degenerative changes are seen in the spine. Soft Tissues: Unremarkable. PELVIS: Bladder: Symmetric distention, no gross wall thickening. There is again seen a herniation of the left aspect of the urinary bladder into the ischial rectal fossa. Reproductive Organs: Unremarkable as visualized. There is again seen a pessary in place. Lymph Nodes: Within normal limits. Bones: Within normal limits. IMPRESSION: 1. No acute abdominal pelvic process. 2. Colonic diverticulosis without evidence of acute diverticulitis. 3. Stable left sided urinary bladder herniation into the ischial rectal fossa. 4. 7 cm infrarenal abdominal aortic aneurysm. No evidence of dissection. 5. 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 RADIATION DOSE DELIVERED: Total DLP DATA REPOSITORY: All CT scans at this facility are submitted to the National Radiology Data Registry (NRDR) Dose Index Registry (DIR) with the [employer] (ACR). RADIATION OPTIMIZATION: All CT scans at this facility use at least one of these dose optimization te chniques: automated exposure control; mA and/or kV adjustment per patient size (includes targeted exa ms where dose is matched to clinical indication); or iterative reconstruction.
[2023-02-24] MEDS: Omnipaque 350 MG/ML 500 ML BTL-Imaging package IJ (08:35)
[2023-02-24] MEDS: Normal Saline - Diluent 50 ML VIAL IJ (08:37)
== END ==
PROVIDERS: PCP Nurse Practitioner Family; Visit Provider Nurse Practitioner Family
DX: I71.40 Abdominal aortic aneurysm, without rupture, unspecified (principal); R10.32 Left lower quadrant pain
CPT/HCPCS: 74174

== ENCOUNTER 2023-10-13 10:56 | Emergency (ER) | payer MEDICARE, SELFPAY ==
[2023-10-13] VITALS (13 sets, daily range): BP systolic 69–153; BP diastolic 20–64; PULSE 40–57; RESP 12–26; TEMP 35.4; O2SAT 92–98
--- NOTE | 2023-10-13 11:00 | RT.EKG_ITS ---
APPROVED REPORT Exam: Resting ECG Reason for Exam: abdominal pain Patient Location: E HR:45 bpm ECG Measurements Heart Rate 45 AXIS [place] 207 P 59 QRSd 85 QRS 35 QT 502 T 59 QTc 434 Conclusion Sinus bradycardia...rate< 60 Anteroseptal infarct, age indeterminate...Q >35mS, T neg, V1-V2
[2023-10-13] MEDS: Normal Saline 1,000 ML 1000 ML IV (11:08)
--- NOTE | 2023-10-13 11:13 | ED.GENADUL_ITS ---
Discharge Plan Disposition Patient Disposition: Condition: Stable Discharge Details Clinical Impression: AAA (abdominal aortic aneurysm, ruptured) Primary Care Provider: Danielito Henry ED Provider: Maxime Mario Home Meds and New Rx's Prescriptions: No Action Ensure Liquid 8 ml PO TID Qty: 5688 12RF mirtazapine 15 mg tablet 7.5 mg PO QHS Qty: 45 6RF donepezil 10 mg tablet 10 mg PO DAILY Qty: 90 12RF mupirocin 2 % ointment 1 applic topical BID Qty: 30 0RF metoprolol succinate 50 mg tablet extended release 24 hr 50 mg PO DAILY Qty: 90 5RF acetaminophen [Tylenol Extra Strength] 500 MG tablet 1 tab PO BID PRN Patient Comments: took over a month ago lisinopril 40 mg tablet See Rx Instructions .ROUTE .COMPLEX Qty: 90 2RF Dose Instruction: TAKE ONE TABLET BY MOUTH EVERY DAY Rx Instructions: TAKE ONE TABLET BY MOUTH EVERY DAY levothyroxine 100 mcg tablet 100 mcg PO DAILY Qty: 90 2RF spironolactone 25 mg tablet 25 mg PO DAILY Qty: 90 1RF HPI General Date/Time Provider Initiated Documentation: 10/13/23 10:58 . Information obtained by: patient and family . History of Present Illness 78 year old F presents to the emergency department with the chief complaint of abdominal pain, described as moderate and severe, Quality is described as sharp, Patient started experiencing this hour(s) (1) and it has been constant. No relieving factors improve symptom(s), No exacerbating factors reported . Patient did receive the following treatments prior to arrival, none Related Data Home Medications ?Medication ?Instructions ?Recorded ?Confirmed acetaminophen 500 mg tablet 1 tab PO BID PRN 07/05/12 10/13/23 (Tylenol Extra Strength) food supplemt, lactose-reduced 8 ml PO TID #5,688 mL 06/06/22 10/13/23 (Ensure oral liquid) lisinopril 40 mg tablet See Rx Instructions .Route 10/17/22 10/13/23 .COMPLEX #90 tabs levothyroxine 100 mcg tablet 100 mcg PO DAILY #90 tab-caps 03/18/23 10/13/23 mirtazapine 15 mg tablet 7.5 mg (1/2 x 15 mg) PO QHS #45 04/29/23 10/13/23 tabs donepezil 10 mg tablet 10 mg PO DAILY #90 tabs 07/15/23 10/13/23 mupirocin 2 % topical ointment 1 applic topical BID #30 grams 07/15/23 10/13/23 metoprolol succinate 50 mg 50 mg PO DAILY #90 tabs 08/26/23 10/13/23 tablet,extended release 24 hr spironolactone 25 mg tablet 25 mg PO DAILY #90 tabs 09/22/23 10/13/23 Previous Rx's ?Medication ?Instructions ?Recorded food supplemt, lactose-reduced 8 ml PO TID #5,688 mL 06/06/22 (Ensure oral liquid) lisinopril 40 mg tablet See Rx Instructions .Route 10/17/22 .COMPLEX #90 tabs levothyroxine 100 mcg tablet 100 mcg PO DAILY #90 tab-caps 03/18/23 mirtazapine 15 mg tablet 7.5 mg (1/2 x 15 mg) PO QHS #45 04/29/23 tabs donepezil 10 mg tablet 10 mg PO DAILY #90 tabs 07/15/23 mupirocin 2 % topical ointment 1 applic topical BID #30 grams 07/15/23 metoprolol succinate 50 mg 50 mg PO DAILY #90 tabs 08/26/23 tablet,extended release 24 hr spironolactone 25 mg tablet 25 mg PO DAILY #90 tabs 09/22/23 Allergies Allergy/AdvReac Type Severity Reaction Status Date / Time Penicillins Allergy Mild SWELLING Verified 10/13/23 11:26 tetanus and diphtheria Allergy Mild LOCAL Verified 10/13/23 11:26 toxoids REACTION; (Tetanus\T\Diphtheria Toxoid) REDNESS atorvastatin Allergy Unknown SKIN RASH Verified 10/13/23 11:26 gemfibrozil Allergy Unknown SKIN RASH Verified 10/13/23 11:26 naproxen AdvReac Intermediate GI UPSET Verified 10/13/23 11:26 hydrochlorothiazide AdvReac Mild HYPONATREMI Verified 10/13/23 11:26 A niacin AdvReac Unknown Other (See Verified 10/13/23 11:26 Comment) General Stated Complaint: Abd Prob CARLOS: 2 Review of Systems All systems reviewed & are unremarkable except as noted in HPI and below Constitutional Constitutional: Denies chills and Denies fever(s) Cardiovascular Cardiovascular: Denies chest pain and Denies dyspnea Respiratory Respiratory: Denies cough and Denies dyspnea Gastrointestinal Gastrointestinal: Denies nausea and Denies vomiting Genitourinary Genitourinary: Denies dysuria Exam Const Orientation: alert [facility] Head: normal to inspection Ears: external ears normal General nose exam: external nose normal Mouth: moist mucous membranes Eyes General: appearance normal, both eyes and all related structures Neck Neck: normal visual inspection Resp Effort & Inspection: normal respiratory effort and able to speak in complete sentences Cardio Rate: regular rate GI Palpation: tender Skin General skin exam: no rashes or lesions noted Neuro General: patient alert Extrem General: normal to inspection Psych Mental Status: mental status grossly normal Course Vital Signs Vital signs: Vital Signs Temperature 35.4 C L 10/13/23 10:59 Pulse 49 L 10/13/23 10:59 Respiratory Rate 18 10/13/23 10:59 Blood Pressure 69/20 L 10/13/23 10:59 Pulse Oximetry 97 10/13/23 10:59 Temperature 35.4 C L 10/13/23 10:59 Temperature Source Temporal Artery Scan 10/13/23 10:59 Pulse 49 L 10/13/23 10:59 Respiratory Rate 18 10/13/23 10:59 Blood Pressure 69/20 L 10/13/23 10:59 Blood Pressure Position Sitting 10/13/23 10:59 Pulse Oximetry 97 10/13/23 10:59 Oxygen Delivery Method Room Air 10/13/23 10:59 Oxygen Flow Rate 0 10/13/23 10:59 Medical Decision Making 78-year-old female with a known AAA on her last CT here in January of last year was 6.9 x 7.0 infrarenal who has a history of dementia as well and is DNR/DNI and per records and discussing with her son who is with her would not want any major surgical interventions or even blood transfusions at this point comes in w ith acute onset abdominal pain starting this morning. She is known to be hypotensive on arrival systolic in the 60s and heart rate in the 50s. She is alert holding her abdomen. She denies any chest pain, difficulty breathing. She is tender diffusely through her abdomen. I discussed with her history of AAA with the son that there is a high likelihood that she has a ruptured AAA which at her age especially without wanting any surgeries she will likely which she understands. I discussed this with the patient as well despite her dementia seems to grabs this and is okay with passing if it is her time. The son is okay with us doing lab work and if able to obtaining a CT to confirm the diagnosis. Will give a dose of fentanyl to help with the pain despite her being hypotensive as her main goal is to be comfortable. CTA confirms ruptured AAA, patient did have an episode of syncope and also is now hypotensive in the 70s. 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 They want her to be allowed to assess comfortably as possible. I advised with this diagnosis she would likely pass very quickly initially understand. She will be taken off the monitor so she can pass in peace with her family. patient still awakens to voice and intermittently has pain, will discuss with h ospitalist about admission for comofort measures until she passes. shortly after phone call with hospitalist patient had agonal breathing, I pronounced her at 2:24pm. Differential Diagnosis Differential Diagnosis: ruptured AAA, dissection Medical Records Medical records reviewed: Yes I reviewed the patient's medical records. Imaging Data Radiologic Study: Attestation: I personally reviewed and interpreted this imaging study as follows: Imaging: CT Scan Radiologist's impression: Patient Name: Arpita Blanton Unit #: [id number] Loc: ER Ordering Provider: Maxime Mario M.D. Status: [facility] ER Primary Care Provider: Danielito Henry NP Date of Exam: 10/13/23 Sex: F : 1945 Age: 78 Exam(s) a CT:CT thorax & abd/pel CTA Exam(s) CT THORAX ABD/PEL CTA EXAM: CT THORAX ABD/PEL CTA CLINICAL HISTORY: known AAA, abdomen pain, hypotension. TECHNIQUE: Imaging Protocol: Axial CT angiography was performed with multi- slice acquisition and multi-planar and/or 3D reconstructions. CONTRAST MATERIAL: Intravenous: Omnipaque 350 Contrast volume:100 mL Oral: / no COMPARISON: CR XR CHEST 2V PA LATERAL from 08/30/[address] ABDOMEN PELVIS CTA from 02/24/2023 FINDINGS: CHEST: Pulmonary Arteries: Suboptimally opacified. No gross evidence of emboli. Tracheobronchial tree: Patent where visualized. Mediastinum and Ora: No dominant adenopathy or fluid collection. Pulmonary parenchyma: No consolidation or dominant measurable mass. Presumed scarring and right lung apex. Pleura: No effusion or pneumothorax. Heart: Mild left ventricular and left atrial enlargement. No pericardial effusion. Aorta: Atherosclerotic changes. Ascending aorta measures 3.8 cm. Descending aorta measures 3.5 cm. No evidence of dissection. Bones: multiple mild compression fractures. Sternal wires. Tubes, Catheters, and Lines: None ABDOMEN AND PELVIS: Abdominal aortic aneurysm again noted, mildly increased in size from prior, 7.3 x 6.9 cm. Large amount of surrounding hemorrhage. No visible active extravasation. Severe atherosclerotic changes throughout aorta and iliac arteries as well as femoral arteries.. Liver: Normal density. No measurable mass. Portal, Superior Mesenteric, and Splenic Veins: Unremarkable. Gallbladder and Biliary Tract: Status post cholecystectomy. Pancreas: Normal density, no abnormal calcifications or inflammatory process. Spleen: Normal. Adrenals: No masses seen. Kidneys: Normal size, contour and axis. No radiodense stones or obstructive uropathy. Bilateral cysts. Bowel: No obstruction or bowel wall thickening. Diverticulosis. Peritoneal Cavity: Fluid seen in low pelvis. Soft Tissues: Unremarkable. Bladder: Nearly empty. No gross wall thickening. Reproductive Organs: Pessary in place. Lymph Nodes: Within normal limits. Bones: Multiple mild compression fractures. IMPRESSION: Findings consistent with ruptured abdominal aortic aneurysm. No acute abnormality in the ches Lab Data Lab results reviewed: Yes I reviewed the patient's lab results. ECG Data Attestation: I personally reviewed and interpreted this ECG (s) as follows: Prior ECG tracings: available for review Interpretation: Sinus bradycardia, rate of 45, MT 207, no STEMI Quality:SDOH Health Related Social Needs: No Data to Display [facility] All Active Problems (Updated 10/13/23 @ 14:09 by Maxime Mario MD) AAA (abdominal aortic aneurysm, ruptured) (Acute) Nasal lesion (Acute) Bunion of great toe of right foot (Acute) Dementia (Chronic) MoCa ; told not to drive car Encounter for pessary maintenance (Acute) 03/2022. Patient requested 70 mm Gellhorn removed. At follow-up visit patient reports improved pelvic pain and constipation. Gellhorn will be left out. Decreased hearing of left ear (Acute) Cognitive impairment (Acute) Petechial rash (Acute) Colitis (Acute) Left lower quadrant pain (Acute) Cyst of right breast (Acute) 05/2022 noted at time of abdominal CAT scan. Patient declines mammogram. 06/2022. 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 Taking daily ASA, Metopolol 100mg QD. Abdominal aortic aneurysm (Acute 10/22/12) q 6 mo US (PLAN 01/28 f/u to be CT with contrast at [facility] [place]) strong fam hx 4x4 cm by US at [facility] [place] 07/2805/14/2022. 6.5 x 6.[address] at [facility] Colon polyp (Acute 10/16/13) 08/26/13 serrated adenoma (f/u 08/28, normal) Difficulty coping (Acute 03/24/16) Diverticulosis (Acute 11/03/14) Essential hypertension (Acute 03/02/13) Taking Amlodipine 10mg QD and Lisinipril 40mg QD. Hypertension well controlled . Today's BP is 128/60. Continue and monitor. Pelvic organ prolapse quantification stage 4 cystocele (Chronic 03/25/16) Rx with Gelhorn pessary Smoker (Acute) Prurigo nodularis (Chronic) Non-alcoholic fatty liver disease (Chronic) Low back pain (Chronic 03/03/13) Emphysema with chronic bronchitis (Acute) Per CXR changes 08/30/18 Declines further pulmonary testing Advance directive discussed with patient (Acute) Genital herpes (Acute) 11/2018 left vulvar lesion. Rx with valacyclovir Abrasion, corneal (Acute) Right leg injury (Acute) Cellulitis and abscess of right leg (Acute) Feeling of sadness (Acute) Weight loss observed on examination (Acute) Peripheral artery disease (Acute) Therapeutic drug monitoring (Acute) Left sided abdominal pain of unknown cause (Acute) 05/2022. No improvement after Gellhorn pessary removed. CAT scan of the abdomen shows a change in the size of her abdominal aortic aneurysm. 06/2022. She denies any further back or abdominal pain. Body mass index (BMI) less than 16.5 (Acute) Medical History Asthma E-coli UTI 07/11/22. Zuñiga sensitive. Hyperlipidemia Hyperlipidemia (10/22/12) Hypertension Hypothyroidism Hypothyroidism (acquired) (10/22/12) Taking Levothyroxine 112mcg QD. Last TSH 2.55 on 12/01/16. Will check level within next 2 weeks. Stress due to illness of family member (11/24/16) Spouse . Dealing with grief. See below. Tick bite Tick bite of abdominal wall Vaginal pessary present (03/02/17) 03/2016. Short stemmed #64 Gelhorn pessary. [id number]. Short stemmed 70mm Gelhorn pessary. On 2022. Pessary removed at patient's request. 03/2022. Pessary removed per pt request. 10/2019 76 mm short stem Gellhorn. 08/2020 70 mm short stem Gellhorn Surgical History AORTOCORONARY BYPASS (~1998) Cholecystectomy HERNIA REPAIR Hysterectomy, Laproscopic partial; has cervix Ligation of fallopian tube VEIN STRIPPING Family History Father , age 56 Heart disease Abdominal aortic aneurysm Maternal Grandfather Heart disease Paternal Grandfather No problems noted. Maternal Grandmother Diabetes Heart disease Paternal Grandmother Diabetes Stroke [place] HISTORY Essential hypertension Heart disease Abdominal aortic aneurysm Bladder cancer 2 UNCLES Heart disease Sister , age 21 Abdominal aortic aneurysm Sister Abdominal aortic aneurysm Sister No problems noted. Brother , age 56 Alcohol abuse Brother No problems noted. Brother No problems noted. Brother No problems noted. Brother No problems noted. Son No problems noted. Son Heart disease Daughter No problems noted. Mother , 30's No problems noted. Social History Smoking/Tobacco Use Status: Current every day Tobacco Type: cigarettes Tobacco: How many years used: 60 Quit status: considering quitting Second Hand Exposure: Yes Smoking risk assessment performed?: Yes Alcohol Intake: never Drug use: Never Substance use type: does not use Counseling given: No Counseling provided: none Housing: house Number of Children: 3 Do you need help understanding health information?: Rarely Pets and animals: No Sexually active: No Do you think of yourself as: straight/heterosexual Current gender identity: female What is your relationship status?: How often do you talk on the phone with friends or family?: three or more times per week How often do you get together with friends or relatives?: decline to answer How often do you attend synagogue or rastafari services?: decline to answer Do you belong to any clubs or organized social groups?: no Panel score (0-1 are the most socially isolated patients): 1 Special nilam needs: No Seatbelt use: always Drive 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
[2023-10-13] MEDS: fentaNYL 100 MCG/2 ML VIAL 25 MCG IVP ×3 (11:15→11:57)
--- NOTE | 2023-10-13 11:15 | DI.CT_ITS ---
Exam(s) CT THORAX ABD/PEL CTA EXAM: CT THORAX ABD/PEL CTA CLINICAL HISTORY: known AAA, abdomen pain, hypotension. TECHNIQUE: Imaging Protocol: Axial CT angiography was performed with multi-slice acquisition and m ulti-planar and/or 3D reconstructions. CONTRAST MATERIAL: Intravenous: Omnipaque 350 Contrast volume:100 mL Oral: / no COMPARISON: CR XR CHEST 2V PA LATERAL from 08/30/[address] ABDOMEN PELVIS CTA from 02/24/2023 FINDINGS: CHEST: Pulmonary Arteries: Suboptimally opacified. No gross evidence of emboli. Tracheobronchial tree: Patent where visualized. Mediastinum and Ora: No dominant adenopathy or fluid collection. Pulmonary parenchyma: No consolidation or dominant measurable mass. Presumed scarring and right lung apex. Pleura: No effusion or pneumothorax. Heart: Mild left ventricular and left atrial enlargement. No pericardial effusion. Aorta: Atherosclerotic changes. Ascending aorta measures 3.8 cm. Descending aorta measures 3.5 cm. No evidence of dissection. Bones: multiple mild compression fractures. Sternal wires. Tubes, Catheters, and Lines: None ABDOMEN AND PELVIS: Abdominal aortic aneurysm again noted, mildly increased in size from prior, 7.3 x 6.9 cm. Large amou nt of surrounding hemorrhage. No visible active extravasation. Severe atherosclerotic changes throu ghout aorta and iliac arteries as well as femoral arteries.. Liver: Normal density. No measurable mass. Portal, Superior Mesenteric, and Splenic Veins: Unremarkable. Gallbladder and Biliary Tract: Status post cholecystectomy. Pancreas: Normal density, no abnormal calcifications or inflammatory process. Spleen: Normal. Adrenals: No masses seen. Kidneys: Normal size, contour and axis. No radiodense stones or obstructive uropathy. Bilateral cysts . Bowel: No obstruction or bowel wall thickening. Diverticulosis. Peritoneal Cavity: Fluid seen in low pelvis. Soft Tissues: Unremarkable. Bladder: Nearly empty. No gross wall thickening. Reproductive Organs: Pessary in place. Lymph Nodes: Within normal limits. Bones: Multiple mild compression fractures. IMPRESSION: Findings consistent with ruptured abdominal aortic aneurysm. No acute abnormality in the chest. Findings called to Dr. Mario of the emergency department. RADIATION DOSE DELIVERED: Total DLP DATA REPOSITORY: All CT scans at this facility are submitted to the National Radiology Data Registry (NRDR) Dose Index Registry (DIR) with the [employer] (ACR). RADIATION OPTIMIZATION: All CT scans at this facility use at least one of these dose optimization te chniques: automated exposure control; mA and/or kV adjustment per patient size (includes targeted exa ms where dose is matched to clinical indication); or iterative reconstruction.
[2023-10-13] MEDS: Ondansetron 4 MG/2 ML VIAL (11:19)
[2023-10-13 11:23] LABS: Abs Immature Grans 0.04 10^3/uL (0.0-0.06); Absolute Basophil Count 0.05 10^3/uL (0.0-0.2); Absolute Eosinophil Count 0.06 10^3/uL (0.0-0.7); Absolute Lymphocyte Count 1.84 10^3/uL (1.2-3.4); Absolute Monocyte Count 0.62 10^3/uL (0.1-0.8); Absolute Neutrophil Count 5.28 10^3/uL (1.2-6.7); Basophils % 0.6 %; Eosinophils % 0.8 %; HCT 33.4 % (36.0-46.0); HGB 10.5 g/dL (11.2-15.7); Immature Grans % 0.5 %; Lymphocytes % 23.3 %; MCH 31.3 pg (27.0-33.0); MCHC 31.4 % (32.0-36.0); MCV 99 fL (80-95); MPV 11.1 fL (8.0-11.0); Monocytes % 7.9 %; Neutrophils % 66.9 %; Platelet Count 179 10^3/uL (130-400); RBC 3.36 10^6/uL (3.93-5.22); RDW 15.3 % (11.7-14.6); RDW-SD 56.8 fL; WBC 7.89 10^3/uL (4.4-10.8)
[2023-10-13] MEDS: Normal Saline Flush 10 ML SYR IVP ×2 (11:25→12:07)
[2023-10-13 11:39] LABS: ALT 31 U/L (14-59); AST 25 U/L (15-37); Albumin 3.3 g/dL (3.4-5.0); Alkaline Phosphatase 107 U/L (46-116); Anion Gap 10.1 mmol/L (3-11); BUN 19 mg/dL (7-18); CO2 26.9 mmol/L (21.0-32.0); CREATININE 1.2 mg/dL (0.55-1.02); Calcium 9.1 mg/dL (8.5-10.1); Chloride 105 mmol/L (98-107); Estimated GFR 46.33 (mL/min/1.73m2); Glucose 144 mg/dL (74-106); Lipase 96 U/L (16-77); Magnesium 2.2 mg/dL (1.8-2.4); Potassium 3.8 mmol/L (3.5-5.1); Sodium 142 mmol/L (136-145); Total Protein 6.3 g/dL (6.4-8.2)
[2023-10-13 11:44] LABS: PTT Activated 21.7 sec (23.6-32.8); Prothrombin Time 10.3 sec (9.1-11.1)
[2023-10-13] MEDS: Normal Saline - Diluent 50 ML VIAL IJ (11:52)
[2023-10-13] MEDS: Omnipaque 350 MG/ML 100 ML BTL IJ (11:56)
--- NOTE | 2023-10-13 12:01 | NUR.NOTE ---
Patient went to CT and when done was being transferred back to patient stretcher in her room and patient began agonal breathing. After a short period she began having periods of alertness. stated she was in pain, 1 mg of dilaudid given. patient more comfortable now.
[2023-10-13] MEDS: HYDROmorphone 2 MG/ML SYR 1 MG IVP (12:08)
--- NOTE | 2023-10-13 12:35 | NUR.NOTE ---
Patient appears comfortable at the moment. Family present in room. Advised to ring with any concerns.
--- NOTE | 2023-10-13 12:57 | NUR.NOTE ---
Hospice cart ordered from kitchen for family.
[2023-10-13] MEDS: LORazepam 2 MG/ML VIAL 1 MG IVP (13:14)
[2023-10-13] MEDS: Normal Saline 10 ML VIAL IJ ×2 (13:14→14:12)
[2023-10-13] MEDS: MORPHine 10 MG/ML VIAL 2 MG IVP (14:12)
--- NOTE | 2023-10-13 14:19 | NUR.NOTE ---
Plans were to admit patient upstairs for end of life care. Patient does not have that much longer and will remain in the ed. medication given to relieve discomfort.
--- NOTE | 2023-10-13 14:22 | NUR.NOTE ---
patient appears to have passed. Dr. Mario notified and in with family.
--- NOTE | 2023-10-13 14:43 | NUR.NOTE ---
ANNE notified at 1435, patient was declined by [facility]. [facility] notified and will be enroute shortly.
== END 2023-10-13 15:37 | disposition expired ==
PROVIDERS: Emergency Provider Emergency Medicine; PCP Nurse Practitioner Family
DX: I71.30 Abdominal aortic aneurysm, ruptured, unspecified (principal); R10.9 Unspecified abdominal pain; I25.10 Atherosclerotic heart disease of native coronary artery without angina pectoris
CPT/HCPCS: 71275; 80053; 83690; 86850; 86900; 86901; 93005; 96374; 96375; 96376; 99285; 74174; 83735; 85025; 85610; 85730; 93010; J1170; J2060; J2270; J2405; J3010; J3490